=== PATIENT | male | born 1945 | race Caucasian/White ===

== ENCOUNTER 2016-04-06 09:57 | Emergency (ER) | payer OTHER ==
[~2016-04-06 09:57] MED LIST: ADVIL200 M1 PO; COLCRYS0.6 MG PO; INDOMETHACIN25 MG PO; METOPROLOL TAR100 MG PO
--- NOTE | 2016-04-06 11:31 | DIAGNOSTIC IMAGING REPORT ---
PROCEDURE: XR ANKLE 3 OR 4 VIEWS - RIGHT INDICATION: TRAUMA/INJURY TECHNIQUE: Four views. COMPARISON: None. FINDINGS: Old a avulsion fractures of the medial and lateral malleoli but no evidence of an acute fracture. Normal ankle mortise. Degenerative changes of the tibiotalar joint. Large calcaneal spurs on the plantar aspect and at the Achilles tendon insertion. Talar joint degenerative changes. Prominent soft tissue swelling medially and laterally. IMPRESSION: 1. Old bimalleolar avulsion fractures but no evidence of an acute fracture 2. Soft tissue swelling 3. Results discussed with Dr. Glez
--- NOTE | 2016-04-06 11:37 | DIAGNOSTIC IMAGING REPORT ---
PROCEDURE: XR KNEE 4 VIEWS - RIGHT INDICATION: TRAUMA/INJURY TECHNIQUE: Four views. COMPARISON: None. FINDINGS: No fracture or dislocation. Moderate lateral and patellofemoral compartment degenerative changes. Prepatellar soft tissue swelling and swelling anterior to the tibial tubercle. No effusion. IMPRESSION: 1. Prepatellar soft tissue swelling 2. Soft tissue anterior to the tibial tubercle suggestive of tendonitis versus contusion 3. Moderate degenerative changes 4. Results discussed with Dr. Glez
--- NOTE | 2016-04-06 12:07 | ED ORDER SUMMARY ---
..... Patient: ASHLIE MAXWELL OrderSheet [facility] VisitID: [id number] [place] [address] 71y, M Registration Date/Time: 04/06/2016 ORDER SHEET Weight: 108.8 kg (stated) Allergies: No Known Drug Allergy GENERAL ORDERS: Knee 4V Right Urgent (10:33 04/06/2016 Valerio Lopes) (Ack 10:45 Lachelle) (12:19 MWinterer R.N.) Ankle 3 or 4V Right Urgent (10:33 04/06/2016 Valerio Lopes) (Ack 10:45 Lachelle) (12:19 MWinterer R.N.) Orthopedic Boot (11:48 04/06/2016 Valerio Lopes) (12:06 LNations ER Tech1) MEDICATION ORDERS: IV FLUIDS: ORDER SHEET NOTES: [Electronically signed by Imer Glez Dr. (12:12 04/06/2016)] [Electronically signed by Shelly Burt R.N. (13:03 04/06/2016)] [Electronically locked/signed by Shelly Burt R.N. (13:03 04/06/2016)]
--- NOTE | 2016-04-06 12:07 | ED NURSING NOTES ---
Clinical Report - Nurses [facility] [address] [place] [address] 04/06/2016 10:00 Patient: ASHLIE MAXWELL TRIAGE Triage time 10:20. Acuity: LEVEL 3. Chief Complaint: INJURY TO RIGHT KNEE and RIGHT ANKLE. Alert. No acute distress. SEPSIS SCREEN: Sepsis Screen: negative. Negative (no infection suspected/documented). --10:29 Shelly Burt R.N. 10:20 04/06/16. BP: 171/65. HR: 98. RR: 20. O2 saturation: 98%. Temp: 97.8 F. Pain level now: 06/16. --10:29 Shelly Burt R.N. Weight: 108.8 kg stated. Height/Length: 68 inches Per Patient. BMI: 36.5. --10:27 Shelly Burt R.N. Medications Colchicine Oral 0.6 mg, daily. Indomethacin Oral 25 mg, 2x a day. Metoprolol Tartrate Oral 100 mg, BID. --10:24 Shelly Burt R.N. Medication/allergy information source: the patient. --10:29 Shelly Burt R.N. Allergies No Known Drug Allergy. --10:24 Shelly Burt R.N. History Arrived by private vehicle. Historian: patient. Accompanied by family. Primary physician (va). This occurred (2 days ago). Occurred at home. Mechanism of injury: fell while walking and landed on the ground; slipped (knee with abrasion, and and swollen. Slipped walking.). He has had trouble walking (Using a cane). The patient has been limping when trying to walk. 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 PAST MEDICAL HX: Tetanus status: unknown. SOCIAL HX: Smoker- current status unknown. Alcohol use; consumes four beers a day and liquor occasionally. No drug use. FALL RISK ASSESSMENT: Fall risk assessment completed. No fall risk identified. NUTRITIONAL RISK ASSESSMENT: The nutritional risk assessment revealed no deficiencies. FUNCTIONAL ASSESSMENT: Functional assessment: no impairments noted. LEARNING NEEDS ASSESSMENT: The learning needs assessment revealed no barriers. SKIN INTEGRITY ASSESSMENT: Skin integrity risk assessment completed. No skin integrity risk identified. --10:29 Shelly Burt R.N. PROBLEMS: Atypical Chest Pain. Hypertension. Gout. --10:25 Shelly Burt R.N. ADDITIONAL SURGERIES: Rt shoulder rotator cuff. Shoulder Surgery. --10:25 Shelly Burt R.N. Interventions ID band on patient. To room. --10:29 Shelly Burt R.N. PHYSICAL ASSESSMENT Ambulatory to room. Patient gowned. GENERAL / NEURO / PSYCH: Oriented X 4. Appears in pain and anxious. EXTREMITIES: Limited ROM present. Capillary refill is less than 2 seconds in the extremities. Pain with weight bearing. Right knee: small abrasion. SKIN: Skin is warm and dry. --10:30 Shelly Burt R.N. NURSING PROGRESS NOTES Cold pack applied. Extremity elevated. Patient gowned. Two patient identifiers checked. Call light placed in reach. Side rails up x 2. Bed placed in lowest position. Brakes of bed on. Patient ready for evaluation. --10:31 Shelly Burt R.N. 11:42 04/06/16. BP: 160/71. HR: 65. RR: 20. O2 saturation: 98%. Temp: deferred. Pain level now: 04/16. --11:44 Shelly Burt R.N. ( Walking boot to the rt foot.). --11:49 Shelly Burt R.N. DISPOSITION / DISCHARGE Condition at departure: improved. No learning barriers present. Discharge instructions provided and reviewed with the patient. Reviewed medication(s) side effects, precautions, dosing and course information. Prescription(s) given to the patient. Patient verbalized understanding. Written instructions provided in Hong [place]er. The patient was discharged home and accompanied by spouse. He left the Emergency Department ambulatory and via private vehicle. Spouse driving. Medication list reviewed and validated. --13:02 Shelly Burt R.N. 11:42 04/06/16. BP: 160/71. HR: 65. RR: 20. O2 saturation: 98%. Temp: deferred. Pain level now: 04/16. 10:20 04/06/16. BP: 171/65. HR: 98. RR: 20. O2 saturation: 98%. Temp: 97.8 F. Pain level now: 06/16. --13:02 Shelly Burt R.N. Locked/Released at 04/06/2016 13:03 by Shelly Burt R.N.
--- NOTE | 2016-04-06 12:07 | ED ORDER SUMMARY ---
..... Patient: ASHLIE MAXWELL OrderSheet [facility] VisitID: [id number] [place] [address] 71y, M Registration Date/Time: 04/06/2016 ORDER SHEET Weight: 108.8 kg (stated) Allergies: No Known Drug Allergy GENERAL ORDERS: Knee 4V Right Urgent (10:33 04/06/2016 Valerio Lopes) (Ack 10:45 Lachelle) (12:19 MWinterer R.N.) Ankle 3 or 4V Right Urgent (10:33 04/06/2016 Valerio Lopes) (Ack 10:45 Lachelle) (12:19 MWinterer R.N.) Orthopedic Boot (11:48 04/06/2016 Valerio Lopes) (12:06 LNations ER Tech1) MEDICATION ORDERS: IV FLUIDS: ORDER SHEET NOTES: [Electronically signed by Imer Glez Dr. (12:12 04/06/2016)] [Electronically signed by Shelly Burt R.N. (13:03 04/06/2016)] [Electronically locked/signed by Shelly Burt R.N. (13:03 04/06/2016)]
--- NOTE | 2016-04-06 12:07 | ED NURSING NOTES ---
Clinical Report - Nurses [facility] [address] [place] [address] 04/06/2016 10:00 Patient: ASHLIE MAXWELL TRIAGE Triage time 10:20. Acuity: LEVEL 3. Chief Complaint: INJURY TO RIGHT KNEE and RIGHT ANKLE. Alert. No acute distress. SEPSIS SCREEN: Sepsis Screen: negative. Negative (no infection suspected/documented). --10:29 Shelly Burt R.N. 10:20 04/06/16. BP: 171/65. HR: 98. RR: 20. O2 saturation: 98%. Temp: 97.8 F. Pain level now: 06/16. --10:29 Shelly Burt R.N. Weight: 108.8 kg stated. Height/Length: 68 inches Per Patient. BMI: 36.5. --10:27 Shelly Burt R.N. Medications Colchicine Oral 0.6 mg, daily. Indomethacin Oral 25 mg, 2x a day. Metoprolol Tartrate Oral 100 mg, BID. --10:24 Shelly Burt R.N. Medication/allergy information source: the patient. --10:29 Shelly Burt R.N. Allergies No Known Drug Allergy. --10:24 Shelly Burt R.N. History Arrived by private vehicle. Historian: patient. Accompanied by family. Primary physician (va). This occurred (2 days ago). Occurred at home. Mechanism of injury: fell while walking and landed on the ground; slipped (knee with abrasion, and and swollen. Slipped walking.). He has had trouble walking (Using a cane). The patient has been limping when trying to walk. 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 PAST MEDICAL HX: Tetanus status: unknown. SOCIAL HX: Smoker- current status unknown. Alcohol use; consumes four beers a day and liquor occasionally. No drug use. FALL RISK ASSESSMENT: Fall risk assessment completed. No fall risk identified. NUTRITIONAL RISK ASSESSMENT: The nutritional risk assessment revealed no deficiencies. FUNCTIONAL ASSESSMENT: Functional assessment: no impairments noted. LEARNING NEEDS ASSESSMENT: The learning needs assessment revealed no barriers. SKIN INTEGRITY ASSESSMENT: Skin integrity risk assessment completed. No skin integrity risk identified. --10:29 Shelly Burt R.N. PROBLEMS: Atypical Chest Pain. Hypertension. Gout. --10:25 Shelly Burt R.N. ADDITIONAL SURGERIES: Rt shoulder rotator cuff. Shoulder Surgery. --10:25 Shelly Burt R.N. Interventions ID band on patient. To room. --10:29 Shelly Burt R.N. PHYSICAL ASSESSMENT Ambulatory to room. Patient gowned. GENERAL / NEURO / PSYCH: Oriented X 4. Appears in pain and anxious. EXTREMITIES: Limited ROM present. Capillary refill is less than 2 seconds in the extremities. Pain with weight bearing. Right knee: small abrasion. SKIN: Skin is warm and dry. --10:30 Shelly Burt R.N. NURSING PROGRESS NOTES Cold pack applied. Extremity elevated. Patient gowned. Two patient identifiers checked. Call light placed in reach. Side rails up x 2. Bed placed in lowest position. Brakes of bed on. Patient ready for evaluation. --10:31 Shelly Burt R.N. 11:42 04/06/16. BP: 160/71. HR: 65. RR: 20. O2 saturation: 98%. Temp: deferred. Pain level now: 04/16. --11:44 Shelly Burt R.N. ( Walking boot to the rt foot.). --11:49 Shelly Burt R.N. DISPOSITION / DISCHARGE Condition at departure: improved. No learning barriers present. Discharge instructions provided and reviewed with the patient. Reviewed medication(s) side effects, precautions, dosing and course information. Prescription(s) given to the patient. Patient verbalized understanding. Written instructions provided in Senegalese. The patient was discharged home and accompanied by spouse. He left the Emergency Department ambulatory and via private vehicle. Spouse driving. Medication list reviewed and validated. --13:02 Shelly Burt R.N. 11:42 04/06/16. BP: 160/71. HR: 65. RR: 20. O2 saturation: 98%. Temp: deferred. Pain level now: 04/16. 10:20 04/06/16. BP: 171/65. HR: 98. RR: 20. O2 saturation: 98%. Temp: 97.8 F. Pain level now: 06/16. --13:02 Shelly Burt R.N. Locked/Released at 04/06/2016 13:03 by Shelly Burt R.N.
--- NOTE | 2016-04-06 12:07 | ED CLINICAL REPORT ---
Clinical Report - Physicians/Mid Levels [facility] [address] [place] [address] 04/06/2016 10:00 Patient: ASHLIE MAXWELL Time Seen: 10:22; initial patient contact. Arrived- By private vehicle. Historian- patient. HISTORY OF PRESENT ILLNESS Chief Complaint: FALL. The injury occurred about 2 days ago. Occurred at home. Fell while walking and landed on the ground; tripped. The patient complains of moderate pain. No blow to the head, neck pain or loss of consciousness. Not dazed. REVIEW OF SYSTEMS The patient complains of pain on weight bearing. No numbness, dizziness, loss of vision, hearing loss or chest pain. No difficulty breathing, weakness, headache or laceration. He has had moderate joint pain, involving the right knee and right ankle. All systems otherwise negative, except as recorded above. PAST HISTORY Atypical Chest Pain. Hypertension. Gout. ADDITIONAL SURGERIES: Rt shoulder rotator cuff. Shoulder Surgery. SOCIAL HISTORY Smoker - current status unknown. Regular alcohol use. ADDITIONAL NOTES The nursing notes have been reviewed with agreement regarding the chief complaint, PMH and patient medications and allergies. PHYSICAL EXAM Appearance: Alert. Oriented X3. No acute distress. Head: Head non-tender. No swelling of head. CVS: Heart sounds normal. Rate normal. Rhythm normal. Respiratory: No respiratory distress. Breath sounds normal. Skin: The patient has a single small abrasion on the right knee. Extremities: Right knee: small abrasion and ecchymosis located in the infrapatellar area. Limited ROM secondary to pain (diminished flexion). Neurovascular intact distally. No joint effusion. Right ankle: moderate tenderness and swelling. Limited ROM secondary to pain and swelling (diminished plantar flexion, dorsiflexion, inversion and eversion). Neurovascular intact distally. No erythema or ecchymosis. Neuro: Oriented X 3. No motor deficit. LABS, X-RAYS, AND EKG Rt Knee X-ray: (1. Prepatellar soft tissue swelling 2. Soft tissue anterior to the tibial tubercle suggestive of tendonitis versus contusion 3. Moderate degenerative changes). Views: AP and lateral. Technique: good. The X-rays were independently viewed by me, interpreted by the radiologist and contemporaneously by me and discussed with the radiologist. Prior films were not available for comparison. Rt Ankle X-ray: (1. Old bimalleolar avulsion fractures but no evidence of an acute fracture 2. Soft tissue swelling). Views: 3 view ankle series. Technique: good. The X-rays were independently viewed by me, interpreted by the radiologist and contemporaneously by me and discussed with the radiologist. Prior films were not available for comparison. PROGRESS AND PROCEDURES Disposition: Discharged home in good condition. Condition: good. CLINICAL IMPRESSION Sprain of the right ankle. Single contusion to the right knee. INSTRUCTIONS Apply ice for 20 minutes four times a day. Don't apply ice directly to skin. Your Current Medications: CONTINUE TAKING THE FOLLOWING MEDICATIONS: Colchicine Oral : 0.6 mg daily. Indomethacin Oral : 25 mg 2x a day. Metoprolol Tartrate Oral : 100 mg BID. Prescription Medications: Hydrocodone/APAP 5mg / 325mg: take 1 orally every 6 hours as needed for pain. Dispense fifteen (15). No refill. Follow-up: Blood pressure screening was not performed during this visit because the patient has an active diagnosis of hypertension. Follow-up with: [facility], , [address] [place], [address] Follow up in about two days. Call for an appointment. (Electronically signed by Imer Glez Dr. 04/06/2016 12:12)
--- NOTE | 2016-04-06 12:07 | ED CLINICAL REPORT ---
Clinical Report - Physicians/Mid Levels [facility] [address] [place] [place] [address] 04/06/2016 10:00 Patient: ASHLIE MAXWELL Time Seen: 10:22; initial patient contact. Arrived- By private vehicle. Historian- patient. HISTORY OF PRESENT ILLNESS Chief Complaint: FALL. The injury occurred about 2 days ago. Occurred at home. Fell while walking and landed on the ground; tripped. The patient complains of moderate pain. No blow to the head, neck pain or loss of consciousness. Not dazed. REVIEW OF SYSTEMS The patient complains of pain on weight bearing. No numbness, dizziness, loss of vision, hearing loss or chest pain. No difficulty breathing, weakness, headache or laceration. He has had moderate joint pain, involving the right knee and right ankle. All systems otherwise negative, except as recorded above. PAST HISTORY Atypical Chest Pain. Hypertension. Gout. ADDITIONAL SURGERIES: Rt shoulder rotator cuff. Shoulder Surgery. SOCIAL HISTORY Smoker - current status unknown. Regular alcohol use. ADDITIONAL NOTES The nursing notes have been reviewed with agreement regarding the chief complaint, PMH and patient medications and allergies. PHYSICAL EXAM Appearance: Alert. Oriented X3. No acute distress. Head: Head non-tender. No swelling of head. CVS: Heart sounds normal. Rate normal. Rhythm normal. Respiratory: No respiratory distress. Breath sounds normal. Skin: The patient has a single small abrasion on the right knee. Extremities: Right knee: small abrasion and ecchymosis located in the infrapatellar area. Limited ROM secondary to pain (diminished flexion). Neurovascular intact distally. No joint effusion. Right ankle: moderate tenderness and swelling. Limited ROM secondary to pain and swelling (diminished plantar flexion, dorsiflexion, inversion and eversion). Neurovascular intact distally. No erythema or ecchymosis. Neuro: Oriented X 3. No motor deficit. LABS, X-RAYS, AND EKG Rt Knee X-ray: (1. Prepatellar soft tissue swelling 2. Soft tissue anterior to the tibial tubercle suggestive of tendonitis versus contusion 3. Moderate degenerative changes). Views: AP and lateral. Technique: good. The X-rays were independently viewed by me, interpreted by the radiologist and contemporaneously by me and discussed with the radiologist. Prior films were not available for comparison. Rt Ankle X-ray: (1. Old bimalleolar avulsion fractures but no evidence of an acute fracture 2. Soft tissue swelling). Views: 3 view ankle series. Technique: good. The X-rays were independently viewed by me, interpreted by the radiologist and contemporaneously by me and discussed with the radiologist. Prior films were not available for comparison. PROGRESS AND PROCEDURES Disposition: Discharged home in good condition. Condition: good. CLINICAL IMPRESSION Sprain of the right ankle. Single contusion to the right knee. INSTRUCTIONS Apply ice for 20 minutes four times a day. Don't apply ice directly to skin. Your Current Medications: CONTINUE TAKING THE FOLLOWING MEDICATIONS: Colchicine Oral : 0.6 mg daily. Indomethacin Oral : 25 mg 2x a day. Metoprolol Tartrate Oral : 100 mg BID. Prescription Medications: Hydrocodone/APAP 5mg / 325mg: take 1 orally every 6 hours as needed for pain. Dispense fifteen (15). No refill. Follow-up: Blood pressure screening was not performed during this visit because the patient has an active diagnosis of hypertension. Follow-up with: [facility], , [address] [place], [address] Follow up in about two days. Call for an appointment. (Electronically signed by Imer Glez Dr. 04/06/2016 12:12)
--- NOTE | 2016-04-06 13:03 | ED MED RECONCILIATION SUMMARY ---
Patient: ASHLIE MAXWELL Medication Reconciliation Report [facility] VisitID: [id number] [address] [place] [address] 71y, M Registration Date/Time: 04/06/2016 Weight: 108.8 kg Height/Length: 68 in. BMI: 36.5 ALLERGIES: No Known Drug Allergy The patient's Home Medications are listed below: CONTINUE TAKING THE FOLLOWING MEDICATIONS: Colchicine Oral 0.6 mg, daily Indomethacin Oral 25 mg, 2x a day Metoprolol Tartrate Oral 100 mg, BID The source(s) of the original Home Medication information: patient The following Medications were given to the patient in the Emergency Department: None. The following Medications were prescribed to the patient: Hydrocodone/APAP 5mg / 325mg: take 1 orally every 6 hours as needed for pain. Dispense fifteen (15). No refill. -- Imer Glez Dr.
--- NOTE | 2016-04-06 13:03 | ED MED RECONCILIATION SUMMARY ---
Patient: ASHLIE MAXWELL Medication Reconciliation Report [facility] VisitID: [id number] [address] [place] [address] 71y, M Registration Date/Time: 04/06/2016 Weight: 108.8 kg Height/Length: 68 in. BMI: 36.5 ALLERGIES: No Known Drug Allergy The patient's Home Medications are listed below: CONTINUE TAKING THE FOLLOWING MEDICATIONS: Colchicine Oral 0.6 mg, daily Indomethacin Oral 25 mg, 2x a day Metoprolol Tartrate Oral 100 mg, BID The source(s) of the original Home Medication information: patient The following Medications were given to the patient in the Emergency Department: None. The following Medications were prescribed to the patient: Hydrocodone/APAP 5mg / 325mg: take 1 orally every 6 hours as needed for pain. Dispense fifteen (15). No refill. -- Imer Glez Dr.
--- NOTE | 2016-04-06 13:03 | ED MAR SUMMARY ---
..... Medication Administration Record [facility] [address] [place] [id number] Patient: ASHLIE MAXWELL Visit ID: [id number] 71y, M Weight: 108.8 kg Height/Length: 68 in BMI: 36.5 ALLERGIES: No Known Drug Allergy
--- NOTE | 2016-04-06 13:03 | ED MAR SUMMARY ---
..... Medication Administration Record [facility] [address] [place], [place] [id number] Patient: ASHLIE MAXWELL Visit ID: [id number] 71y, M Weight: 108.8 kg Height/Length: 68 in BMI: 36.5 ALLERGIES: No Known Drug Allergy
--- NOTE | 2016-04-06 13:03 | ED DISCHARGE INSTRUCTIONS ---
Patient: ASHLIE MAXWELL General Instructions [facility] VisitID: [id number] [address], [place], [place] [id number] 71y, M Registration Date/Time: 04/06/2016 Sprain of the right ankle. Single contusion to the right knee. INSTRUCTIONS Apply ice for 20 minutes four times a day. Don't apply ice directly to skin. Your Current Medications: CONTINUE TAKING THE FOLLOWING MEDICATIONS: Colchicine Oral : 0.6 mg daily. Indomethacin Oral : 25 mg 2x a day. Metoprolol Tartrate Oral : 100 mg BID. Prescription Medications: Hydrocodone/APAP 5mg / 325mg: take 1 orally every 6 hours as needed for pain. Dispense fifteen (15). No refill. Follow-up: Blood pressure screening was not performed during this visit because the patient has an active diagnosis of hypertension. Follow-up with: [facility], , [address], , [place], [id number] Follow up in about two days. Call for an appointment. ADDITIONAL INFORMATION Sprain, Ankle,With X-Ray A sprain is an injury to the ligaments or capsule that holds a joint together. There are no broken bones. Most sprains take from four to six weeks to heal. If the ligament is completely torn (severe sprain), it can take several months to recover. Mild to moderate sprains may be treated with an elastic wrap or an in-shoe splint to provide support and prevent re-injury. A mild sprain may not require any additional support. A severe sprain may require surgery to repair. Home care The following guidelines will help you care for your injury at home: Stay off the injured leg as much as possible until you can walk on it without pain. If you have a lot of pain with walking, crutches or a walker may be prescribed. (These can be rented or purchased at many pharmacies and surgical or orthopedic supply stores). Follow your doctor's advice regarding when to begin bearing weight on that leg. Keep your leg elevated to reduce pain and swelling. When sleeping, place a pillow under the injured leg. When sitting, support the injured leg so it is level with your waist. This is very important during the first 48 hours. Apply an ice pack (ice cubes in a plastic bag, wrapped in a towel) over the injured area for 20 minutes every 12 hours the first day. You can place the ice pack directly over the splint/cast. If you were given a boot, open it to apply the ice pack. Continue with ice packs 34 times a day for the next two days, then as needed for the relief of pain and swelling. You may use acetaminophen or ibuprofen to control pain, unless another pain medicine was prescribed. If you have chronic liver or kidney disease or ever had a stomach ulcer or GI bleeding, talk with your doctor before using these medicines. You may return to sports after healing, when you can run without pain. A sprained ankle is at risk for re-injury during the first six weeks. During that time, protect your ankle with an in-shoe splint that prevents tilting of your ankle from side to side. This is very important if you do active work or play sports during that time. Follow-up care Any X-rays you had today dont show any broken bones, breaks, or fractures. Sometimes fractures dont show up on the first X-ray. Bruises and sprains can sometimes hurt as much as a fracture. These injuries can take time to heal completely. If your symptoms dont improve or they get worse, talk with your doctor. You may need a repeat X-ray. When to seek medical care Get prompt medical attention if any of the following occur: The plaster cast or splint gets wet or soft The fiberglass cast or splint gets wet and does not dry for 24 hours Pain or swelling increases, or redness appears Toes become cold, blue, numb or tingly Re-injure your ankle Contusion,Soft Tissue You have a CONTUSION, which is a bruise with swelling and some bleeding under the skin. There are no broken bones. This injury takes a few days to a few weeks to heal. Home Care: 1) Keep the injured part elevated to reduce pain and swelling. This is especially important during the first 48 hours. 2) Make an ice pack (ice cubes in a plastic bag, wrapped in a towel) and apply for 20 minutes every 1-2 hours the first day. Continue this 3-4 times a day until the pain and swelling goes away. 3) You may use acetaminophen (Tylenol) or ibuprofen (Motrin, Advil) to control pain, unless another pain medicine was prescribed. [ NOTE : If you have chronic liver or kidney disease or ever had a stomach ulcer or GI bleeding, talk with your doctor before using these medicines.] Follow Up with your doctor or this facility if you are not improving within the next THREE days. [NOTE: If X-rays were taken, they will be reviewed by a radiologist. You will be notified of any new findings that may affect your care.] Get Prompt Medical Attention if any of the following occur: -- Pain or swelling increases -- Injured arm or leg becomes cold, blue, numb or tingly -- Redness, warmth or drainage from the skin Hydrocodone Bitartrate, Acetaminophen Oral tablet What is this medicine? ACETAMINOPHEN; HYDROCODONE (a set a PATIENCE lucina fen; jessica droe KOE done) is a pain reliever. It is used to treat mild to moderate pain. How should I use this medicine? Take this medicine by mouth. Swallow it with a full glass of water. Follow the directions on the prescription label. If the medicine upsets your stomach, take the medicine with food or milk. Do not take more than you are told to take. Talk to your associate professor of church music regarding the use of this medicine in children. This medicine is not approved for use in children. What side effects may I notice from receiving this medicine? Side effects that you should report to your doctor or health primary care nurse as soon as possible: allergic reactions like skin rash, itching or hives, swelling of the face, lips, or tongue breathing problems confusion feeling faint or lightheaded, falls stomach pain yellowing of the eyes or skin Side effects that usually do not require medical attention (report to your doctor or health primary care nurse if they continue or are bothersome): nausea, vomiting stomach upset What may interact with this medicine? alcohol antihistamines isoniazid medicines for depression, anxiety, or psychotic disturbances medicines for sleep muscle relaxants naltrexone narcotic medicines (opiates) for pain phenobarbital ritonavir tramadol What if I miss a dose? If you miss a dose, take it as soon as you can. If it is almost time for your next dose, take only that dose. Do not take double or extra doses. Where should I keep my medicine? Keep out of the reach of children. This medicine can be abused. Keep your medicine in a safe place to protect it from theft. Do not share this medicine with anyone. Selling or giving away this medicine is dangerous and against the law. Store at room temperature between 15 and 30 degrees C (59 and 86 degrees F). Protect from light. Keep container tightly closed. Throw away any unused medicine after the expiration date. Discard unused medicine and used packaging carefully. Pets and children can be harmed if they find used or lost packages. What should I tell my health care provider before I take this medicine? They need to know if you have any of these conditions: brain tumor Crohn's disease, inflammatory bowel disease, or ulcerative colitis drink more than 3 alcohol-containing drinks per day drug abuse or addiction head injury heart or circulation problems kidney disease or problems going to the bathroom liver disease lung disease, asthma, or breathing problems an unusual or allergic reaction to acetaminophen, hydrocodone, other opioid analgesics, other medicines, foods, dyes, or preservatives or trying to get breast-feeding What should I watch for while using this medicine? Tell your doctor or health primary care nurse if your pain does not go away, if it gets worse, or if you have new or a different type of pain. You may develop tolerance to the medicine. Tolerance means that you will need a higher dose of the medicine for pain relief. Tolerance is normal and is expected if you take the medicine for a long time. Do not suddenly stop taking your medicine because you may develop a severe reaction. Your body becomes used to the medicine. This does NOT mean you are addicted. Addiction is a behavior related to getting and using a drug for a non-medical reason. If you have pain, you have a medical reason to take pain medicine. Your doctor will tell you how much medicine to take. If your doctor wants you to stop the medicine, the dose will be slowly lowered over time to avoid any side effects. You may get drowsy or dizzy when you first start taking the medicine or change doses. Do not drive, use machinery, or do anything that may be dangerous until you know how the medicine affects you. Stand or sit up slowly. There are different types of narcotic medicines (opiates) for pain. If you take more than one type at the same time, you may have more side effects. Give your health care provider a list of all medicines you use. Your doctor will tell you how much medicine to take. Do not take more medicine than directed. Call emergency for help if you have problems breathing. The medicine will cause constipation. Try to have a bowel movement at least every 2 to 3 days. If you do not have a bowel movement for 3 days, call your doctor or health primary care nurse. Too much acetaminophen can be very dangerous. Do not take Tylenol (acetaminophen) or medicines that contain acetaminophen with this medicine. Many non-prescription medicines contain acetaminophen. Always read the labels carefully. You have been given the following additional information: Sprain, Ankle, With X-Ray Contusion, Soft Tissue Hydrocodone Bitartrate, Acetaminophen Oral tablet (Electronically signed by Imer Glez Dr. 04/06/2016 12:12)
--- NOTE | 2016-04-06 13:03 | ED DISCHARGE INSTRUCTIONS ---
Patient: ASHLIE MAXWELL General Instructions [facility] VisitID: [id number] [address], [place], [place] [id number] 71y, M Registration Date/Time: 04/06/2016 Sprain of the right ankle. Single contusion to the right knee. INSTRUCTIONS Apply ice for 20 minutes four times a day. Don't apply ice directly to skin. Your Current Medications: CONTINUE TAKING THE FOLLOWING MEDICATIONS: Colchicine Oral : 0.6 mg daily. Indomethacin Oral : 25 mg 2x a day. Metoprolol Tartrate Oral : 100 mg BID. Prescription Medications: Hydrocodone/APAP 5mg / 325mg: take 1 orally every 6 hours as needed for pain. Dispense fifteen (15). No refill. Follow-up: Blood pressure screening was not performed during this visit because the patient has an active diagnosis of hypertension. Follow-up with: [facility], , [address], , [place], [id number] Follow up in about two days. Call for an appointment. ADDITIONAL INFORMATION Sprain, Ankle,With X-Ray A sprain is an injury to the ligaments or capsule that holds a joint together. There are no broken bones. Most sprains take from four to six weeks to heal. If the ligament is completely torn (severe sprain), it can take several months to recover. Mild to moderate sprains may be treated with an elastic wrap or an in-shoe splint to provide support and prevent re-injury. A mild sprain may not require any additional support. A severe sprain may require surgery to repair. Home care The following guidelines will help you care for your injury at home: Stay off the injured leg as much as possible until you can walk on it without pain. If you have a lot of pain with walking, crutches or a walker may be prescribed. (These can be rented or purchased at many pharmacies and surgical or orthopedic supply stores). Follow your doctor's advice regarding when to begin bearing weight on that leg. Keep your leg elevated to reduce pain and swelling. When sleeping, place a pillow under the injured leg. When sitting, support the injured leg so it is level with your waist. This is very important during the first 48 hours. Apply an ice pack (ice cubes in a plastic bag, wrapped in a towel) over the injured area for 20 minutes every 12 hours the first day. You can place the ice pack directly over the splint/cast. If you were given a boot, open it to apply the ice pack. Continue with ice packs 34 times a day for the next two days, then as needed for the relief of pain and swelling. You may use acetaminophen or ibuprofen to control pain, unless another pain medicine was prescribed. If you have chronic liver or kidney disease or ever had a stomach ulcer or GI bleeding, talk with your doctor before using these medicines. You may return to sports after healing, when you can run without pain. A sprained ankle is at risk for re-injury during the first six weeks. During that time, protect your ankle with an in-shoe splint that prevents tilting of your ankle from side to side. This is very important if you do active work or play sports during that time. Follow-up care Any X-rays you had today dont show any broken bones, breaks, or fractures. Sometimes fractures dont show up on the first X-ray. Bruises and sprains can sometimes hurt as much as a fracture. These injuries can take time to heal completely. If your symptoms dont improve or they get worse, talk with your doctor. You may need a repeat X-ray. When to seek medical care Get prompt medical attention if any of the following occur: The plaster cast or splint gets wet or soft The fiberglass cast or splint gets wet and does not dry for 24 hours Pain or swelling increases, or redness appears Toes become cold, blue, numb or tingly Re-injure your ankle Contusion,Soft Tissue You have a CONTUSION, which is a bruise with swelling and some bleeding under the skin. There are no broken bones. This injury takes a few days to a few weeks to heal. Home Care: 1) Keep the injured part elevated to reduce pain and swelling. This is especially important during the first 48 hours. 2) Make an ice pack (ice cubes in a plastic bag, wrapped in a towel) and apply for 20 minutes every 1-2 hours the first day. Continue this 3-4 times a day until the pain and swelling goes away. 3) You may use acetaminophen (Tylenol) or ibuprofen (Motrin, Advil) to control pain, unless another pain medicine was prescribed. [ NOTE : If you have chronic liver or kidney disease or ever had a stomach ulcer or GI bleeding, talk with your doctor before using these medicines.] Follow Up with your doctor or this facility if you are not improving within the next THREE days. [NOTE: If X-rays were taken, they will be reviewed by a radiologist. You will be notified of any new findings that may affect your care.] Get Prompt Medical Attention if any of the following occur: -- Pain or swelling increases -- Injured arm or leg becomes cold, blue, numb or tingly -- Redness, warmth or drainage from the skin Hydrocodone Bitartrate, Acetaminophen Oral tablet What is this medicine? ACETAMINOPHEN; HYDROCODONE (a set a PATIENCE lucina fen; jessica droe KOE done) is a pain reliever. It is used to treat mild to moderate pain. How should I use this medicine? Take this medicine by mouth. Swallow it with a full glass of water. Follow the directions on the prescription label. If the medicine upsets your stomach, take the medicine with food or milk. Do not take more than you are told to take. Talk to your human factors scientist regarding the use of this medicine in children. This medicine is not approved for use in children. What side effects may I notice from receiving this medicine? Side effects that you should report to your doctor or health career center director as soon as possible: allergic reactions like skin rash, itching or hives, swelling of the face, lips, or tongue breathing problems confusion feeling faint or lightheaded, falls stomach pain yellowing of the eyes or skin Side effects that usually do not require medical attention (report to your doctor or health career center director if they continue or are bothersome): nausea, vomiting stomach upset What may interact with this medicine? alcohol antihistamines isoniazid medicines for depression, anxiety, or psychotic disturbances medicines for sleep muscle relaxants naltrexone narcotic medicines (opiates) for pain phenobarbital ritonavir tramadol What if I miss a dose? If you miss a dose, take it as soon as you can. If it is almost time for your next dose, take only that dose. Do not take double or extra doses. Where should I keep my medicine? Keep out of the reach of children. This medicine can be abused. Keep your medicine in a safe place to protect it from theft. Do not share this medicine with anyone. Selling or giving away this medicine is dangerous and against the law. Store at room temperature between 15 and 30 degrees C (59 and 86 degrees F). Protect from light. Keep container tightly closed. Throw away any unused medicine after the expiration date. Discard unused medicine and used packaging carefully. Pets and children can be harmed if they find used or lost packages. What should I tell my health care provider before I take this medicine? They need to know if you have any of these conditions: brain tumor Crohn's disease, inflammatory bowel disease, or ulcerative colitis drink more than 3 alcohol-containing drinks per day drug abuse or addiction head injury heart or circulation problems kidney disease or problems going to the bathroom liver disease lung disease, asthma, or breathing problems an unusual or allergic reaction to acetaminophen, hydrocodone, other opioid analgesics, other medicines, foods, dyes, or preservatives or trying to get breast-feeding What should I watch for while using this medicine? Tell your doctor or health career center director if your pain does not go away, if it gets worse, or if you have new or a different type of pain. You may develop tolerance to the medicine. Tolerance means that you will need a higher dose of the medicine for pain relief. Tolerance is normal and is expected if you take the medicine for a long time. Do not suddenly stop taking your medicine because you may develop a severe reaction. Your body becomes used to the medicine. This does NOT mean you are addicted. Addiction is a behavior related to getting and using a drug for a non-medical reason. If you have pain, you have a medical reason to take pain medicine. Your doctor will tell you how much medicine to take. If your doctor wants you to stop the medicine, the dose will be slowly lowered over time to avoid any side effects. You may get drowsy or dizzy when you first start taking the medicine or change doses. Do not drive, use machinery, or do anything that may be dangerous until you know how the medicine affects you. Stand or sit up slowly. There are different types of narcotic medicines (opiates) for pain. If you take more than one type at the same time, you may have more side effects. Give your health care provider a list of all medicines you use. Your doctor will tell you how much medicine to take. Do not take more medicine than directed. Call emergency for help if you have problems breathing. The medicine will cause constipation. Try to have a bowel movement at least every 2 to 3 days. If you do not have a bowel movement for 3 days, call your doctor or health career center director. Too much acetaminophen can be very dangerous. Do not take Tylenol (acetaminophen) or medicines that contain acetaminophen with this medicine. Many non-prescription medicines contain acetaminophen. Always read the labels carefully. You have been given the following additional information: Sprain, Ankle, With X-Ray Contusion, Soft Tissue Hydrocodone Bitartrate, Acetaminophen Oral tablet (Electronically signed by Imer Glez Dr. 04/06/2016 12:12)
== END 2016-04-06 12:15 | disposition home or self-care (01) ==
LOC: ED SRH 09:57
DX: S93.401A Sprain of unspecified ligament of right ankle, initial encounter (principal); S80.01XA Contusion of right knee, initial encounter; W01.0XXA Fall on same level from slipping, tripping and stumbling without subsequent striking against object, initial encounter; Y93.01 Activity, walking, marching and hiking; Y92.009 Unspecified place in unspecified non-institutional (private) residence as the place of occurrence of the external cause; Y99.9 Unspecified external cause status; I10 Essential (primary) hypertension; Z79.899 Other long term (current) drug therapy

== ENCOUNTER 2016-06-27 19:19 | Emergency (ER) | payer OTHER ==
--- NOTE | 2016-06-27 21:58 | ED CLINICAL REPORT ---
Clinical Report - [facility] [address] [place] [place] [address] 06/27/2016 19:21 Patient: ASHLIE MAXWELL Time Seen: 20:04; initial patient contact. Arrived- By private vehicle. Historian- patient. HISTORY OF PRESENT ILLNESS Chief Complaint: BACK PAIN. Modifying factors. Not worsened by anything. Not relieved by anything. It is described as being moderate in degree and in the area of the lower lumbar spine. The quality is noted to be aching. No radiation. Onset- about 3 days ago and it is still present. It was gradual in onset and has been constant. No bladder dysfunction, bowel dysfunction, sensory loss or motor loss. Patient denies an injury. Patient also notes injury to the neck. Patient denies injury to the head. Similar symptoms previously: None. Recent medical care: Not recently seen/assessed. REVIEW OF SYSTEMS No fever, chills or headache. He has had neck pain. All systems otherwise negative, except as recorded above. PAST HISTORY Contusion. Sprain. Atypical Chest Pain. Hypertension. Gout. SURGERIES: Rt shoulder rotator cuff. Shoulder Surgery. Medications: Colchicine Oral 0.6 mg, daily. Indomethacin Oral 25 mg, 2x a day. Metoprolol Tartrate Oral 100 mg, BID. Allergies: No Known Drug Allergy. SOCIAL HISTORY Former smoker. Regular alcohol use. No drug use. ADDITIONAL NOTES The nursing notes have been reviewed. PHYSICAL EXAM Vital Signs: 06/27/2016 19:41 BP: 199/89. HR: 80. RR: 20. O2 saturation: 95%. Temp: 98.9 F. Pain level now: 11/16. Have been reviewed. Hypertensive. Heart rate normal. Respiratory rate normal. Temperature normal. Oxygen saturation normal. Appearance: Alert. Appears to be in pain. Neck: Moderate muscle spasm of the left posterior neck. Moderate acute decrease in ROM secondary to pain. No vertebral tenderness. Back: Moderate muscle spasm of the right and left posterior back. Moderate soft tissue tenderness in the right mid and lower and left mid and lower lumbar area. Moderately limited ROM in the back- in the lumbar spine: decreased flexion, extension and rotation to the right and left. No vertebral point tenderness. Neuro: Oriented X 3. Mood/affect normal. No motor deficit. No sensory deficit. PROGRESS AND PROCEDURES Disposition: Discharged home in good and improved condition. Condition: good. CLINICAL IMPRESSION Acute lumbar strain. Acute cervical strain. INSTRUCTIONS No lifting greater than 10 lbs until well. Your Current Medications: CONTINUE TAKING THE FOLLOWING MEDICATIONS: Colchicine Oral : 0.6 mg daily. Indomethacin Oral : 25 mg 2x a day. Metoprolol Tartrate Oral : 100 mg BID. Prescription Medications: Baclofen 20 mg: take 1 orally every 8 hours. Dispense thirty (30). No refills. Colchicine 0.6 mg tablets: take 1 tablet orally every 1-2 hours as needed for pain. Do not take more than 4 mg in one day. Dispense thirty (30). No refills. Follow-up: Follow up with your doctor in about two days. Call for an appointment. Blood pressure screening was not performed during this visit because the patient has an active diagnosis of hypertension. (Electronically signed by Imer Glez Dr. 06/27/2016 22:00)
--- NOTE | 2016-06-27 21:58 | ED NURSING NOTES ---
Clinical Report - Nurses [facility] [address] [place] [address] 06/27/2016 19:21 Patient: ASHLIE MAXWELL TRIAGE Triage time 19:28. Acuity: LEVEL 3. Chief Complaint: (numbness in back, pain in neck). 19:48 06/27/16. Alert. No acute distress. SEPSIS SCREEN: Sepsis Screen. Negative (no infection suspected/documented). CHARMAINE COMA SCORE: Mark Coma Scale: 15- eyes open spontaneously (4); best verbal response- oriented x 4 (5); best motor response- obeys commands (6). --19:48 Monica Smith R.N. 19:41 06/27/16. BP: 199/89. HR: 80. RR: 20. O2 saturation: 95%. Temp: 98.9 F. Pain level now: 11/16. --19:48 Monica Smith R.N. 19:51 06/27/16. --19:51 Monica Smith R.N. Weight: 104.3 kg stated. Height/Length: 69 inches Per Patient. BMI: 34. --19:47 Monica Smith R.N. Medications Colchicine Oral 0.6 mg, daily. Indomethacin Oral 25 mg, 2x a day. Metoprolol Tartrate Oral 100 mg, BID. --19:43 Monica Smith R.N. Allergies No Known Drug Allergy. --19:43 Monica Smith R.N. History Arrived by private vehicle. Historian: patient and family. Accompanied by family. Primary physician (Dr Soni at the [facility]). Onset. (3 days ago). He has had weakness and a cough. 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 PAST MEDICAL HX: Immunizations: up-to-date. SOCIAL HX: Former smoker, end date 1976. Heavy alcohol use. (Patient states "I drink at least 3 beers a day"). No drug use. FALL RISK ASSESSMENT: Fall risk assessment completed. No fall risk identified. NUTRITIONAL RISK ASSESSMENT: The nutritional risk assessment revealed no deficiencies. FUNCTIONAL ASSESSMENT: Functional assessment: no impairments noted. LEARNING NEEDS ASSESSMENT: The learning needs assessment revealed no barriers. SKIN INTEGRITY ASSESSMENT: Skin integrity risk assessment completed. No skin integrity risk identified. --19:48 Monica Smith R.N. PAST MEDICAL HX: ( Patient states he has been out of colchicine for the past 3 days. Patient's reports "every time he doesn't take his gout medicine, he ends up in the hospital. He always has HBP when he comes in"). --19:51 Monica Smith R.N. PROBLEMS: Contusion. Sprain. Atypical Chest Pain. Hypertension. Gout. --19:43 Monica Smith R.N. ADDITIONAL SURGERIES: Rt shoulder rotator cuff. Shoulder Surgery. --19:44 Monica Smith R.N. Interventions ID band on patient. To treatment room. --19:48 Monica Smith R.N. PHYSICAL ASSESSMENT 19:50 06/27/16. To room via wheelchair. GENERAL / NEURO / PSYCH: Alert. Oriented X 4. Appears in no acute distress. HEENT: No facial asymmetry noted. Mucous membranes are pink. RESPIRATORY: Respirations not labored. The patient can speak in full sentences. Chest nontender. Breath sounds within normal limits. CVS: Capillary refill less than 2 seconds. Pulses within normal limits. GI / : Abdomen soft and nontender and normal bowel sounds. SKIN: Skin intact. Skin is warm and dry. Normal skin turgor. --19:50 Monica Smith R.N. NURSING PROGRESS NOTES 21:47 06/27/2016 Diazepam (Diazepam) IM 10 mg given. Given in the right anterior lateral thigh. Allergies verified, confirmed 5 rights and sedative warning given to the patient and patient's family. --21:47 Monica Smith R.N. DISPOSITION / DISCHARGE 22:06 06/27/16. Condition at departure: stable. The goals identified in the patient's plan of care were met. ( Provider aware of vitals, patient clear for discharge.). --22:06 Andreina Pope 22:04 06/27/16. BP: 173/99. HR: 79. RR: 20. O2 saturation: 93% on room air. Temp: 98.9 F (oral). Pain level now: 0/10. --22:06 Andreina Pope Departure time: 2207. --22:09 Andreina Pope. Locked/Released at 06/28/2016 0:34 by Monica Smith R.N.
--- NOTE | 2016-06-27 21:58 | ED ORDER SUMMARY ---
..... Patient: ASHLIE MAXWELL OrderSheet [facility] VisitID: [id number] [address] [place] [address] 71y, M Registration Date/Time: 06/27/2016 ORDER SHEET Weight: 104.3 kg (stated) Allergies: No Known Drug Allergy GENERAL ORDERS: MEDICATION ORDERS: Diazepam IM 10 mg (HIGH ALERT MEDICATION, NOW) (21:07 06/27/2016 Valerio Lopes) (Ack 21:11 Aidee R.NAbby) (21:47 Aidee Chicas.Cristina) IV FLUIDS: ORDER SHEET NOTES: [Electronically signed by Imer Glez Dr. (22:00 06/27/2016)] [Electronically signed by Monica Smith R.N. (00:34 06/28/2016)] [Electronically locked/signed by Monica Smith R.N. (00:34 06/28/2016)]
--- NOTE | 2016-06-27 21:58 | ED NURSING NOTES ---
Clinical Report - Nurses [facility] [address] [place] [address] 06/27/2016 19:21 Patient: ASHLIE MAXWELL TRIAGE Triage time 19:28. Acuity: LEVEL 3. Chief Complaint: (numbness in back, pain in neck). 19:48 06/27/16. Alert. No acute distress. SEPSIS SCREEN: Sepsis Screen. Negative (no infection suspected/documented). CHARMAINE COMA SCORE: Adams Coma Scale: 15- eyes open spontaneously (4); best verbal response- oriented x 4 (5); best motor response- obeys commands (6). --19:48 Monica Smith R.N. 19:41 06/27/16. BP: 199/89. HR: 80. RR: 20. O2 saturation: 95%. Temp: 98.9 F. Pain level now: 11/16. --19:48 Monica Smith R.N. 19:51 06/27/16. --19:51 Monica Smith R.N. Weight: 104.3 kg stated. Height/Length: 69 inches Per Patient. BMI: 34. --19:47 Monica Smith R.N. Medications Colchicine Oral 0.6 mg, daily. Indomethacin Oral 25 mg, 2x a day. Metoprolol Tartrate Oral 100 mg, BID. --19:43 Monica Smith R.N. Allergies No Known Drug Allergy. --19:43 Monica Smith R.N. History Arrived by private vehicle. Historian: patient and family. Accompanied by family. Primary physician (Dr Soni at the [facility]). Onset. (3 days ago). He has had weakness and a cough. 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 PAST MEDICAL HX: Immunizations: up-to-date. SOCIAL HX: Former smoker, end date 1976. Heavy alcohol use. (Patient states "I drink at least 3 beers a day"). No drug use. FALL RISK ASSESSMENT: Fall risk assessment completed. No fall risk identified. NUTRITIONAL RISK ASSESSMENT: The nutritional risk assessment revealed no deficiencies. FUNCTIONAL ASSESSMENT: Functional assessment: no impairments noted. LEARNING NEEDS ASSESSMENT: The learning needs assessment revealed no barriers. SKIN INTEGRITY ASSESSMENT: Skin integrity risk assessment completed. No skin integrity risk identified. --19:48 Monica Smith R.N. PAST MEDICAL HX: ( Patient states he has been out of colchicine for the past 3 days. Patient's reports "every time he doesn't take his gout medicine, he ends up in the hospital. He always has HBP when he comes in"). --19:51 Monica Smith R.N. PROBLEMS: Contusion. Sprain. Atypical Chest Pain. Hypertension. Gout. --19:43 Monica Smith R.N. ADDITIONAL SURGERIES: Rt shoulder rotator cuff. Shoulder Surgery. --19:44 Monica Smith R.N. Interventions ID band on patient. To treatment room. --19:48 Monica Smith R.N. PHYSICAL ASSESSMENT 19:50 06/27/16. To room via wheelchair. GENERAL / NEURO / PSYCH: Alert. Oriented X 4. Appears in no acute distress. HEENT: No facial asymmetry noted. Mucous membranes are pink. RESPIRATORY: Respirations not labored. The patient can speak in full sentences. Chest nontender. Breath sounds within normal limits. CVS: Capillary refill less than 2 seconds. Pulses within normal limits. GI / : Abdomen soft and nontender and normal bowel sounds. SKIN: Skin intact. Skin is warm and dry. Normal skin turgor. --19:50 Monica Smith R.N. NURSING PROGRESS NOTES 21:47 06/27/2016 Diazepam (Diazepam) IM 10 mg given. Given in the right anterior lateral thigh. Allergies verified, confirmed 5 rights and sedative warning given to the patient and patient's family. --21:47 Monica Smith R.N. DISPOSITION / DISCHARGE 22:06 06/27/16. Condition at departure: stable. The goals identified in the patient's plan of care were met. ( Provider aware of vitals, patient clear for discharge.). --22:06 Andreina Pope 22:04 06/27/16. BP: 173/99. HR: 79. RR: 20. O2 saturation: 93% on room air. Temp: 98.9 F (oral). Pain level now: 0/10. --22:06 Andreina Pope Departure time: 2207. --22:09 Andreina Pope. Locked/Released at 06/28/2016 0:34 by Monica Smith R.N.
--- NOTE | 2016-06-27 21:58 | ED ORDER SUMMARY ---
..... Patient: ASHLIE MAXWELL OrderSheet [facility] VisitID: [id number] [address] [place] [address] 71y, M Registration Date/Time: 06/27/2016 ORDER SHEET Weight: 104.3 kg (stated) Allergies: No Known Drug Allergy GENERAL ORDERS: MEDICATION ORDERS: Diazepam IM 10 mg (HIGH ALERT MEDICATION, NOW) (21:07 06/27/2016 Valerio Lopes) (Ack 21:11 Aidee R.NAbby) (21:47 Aidee Chicas.Cristina) IV FLUIDS: ORDER SHEET NOTES: [Electronically signed by Imer Glez Dr. (22:00 06/27/2016)] [Electronically signed by Monica Smith R.N. (00:34 06/28/2016)] [Electronically locked/signed by Monica Smith R.N. (00:34 06/28/2016)]
--- NOTE | 2016-06-28 00:34 | ED MAR SUMMARY ---
..... Medication Administration Record [facility] [address] [place] [address] Patient: ASHLIE MAXWELL Visit ID: [id number] 71y, M Weight: 104.3 kg Height/Length: 69 in BMI: 34 ALLERGIES: No Known Drug Allergy Given 21:47 06/27/2016 Monica Smith R.N. Medication Administered: DIAZEPAM [IM] (DIAZEPAM), Dose: 10 mg IM. Medication Ordered: Diazepam IM 10 mg (HIGH ALERT MEDICATION, NOW).
--- NOTE | 2016-06-28 00:34 | ED MED RECONCILIATION SUMMARY ---
Patient: ASHLIE MAXWELL Medication Reconciliation Report [facility] VisitID: [id number] [address] [place] [address] 71y, M Registration Date/Time: 06/27/2016 Weight: 104.3 kg Height/Length: 69 in. BMI: 34.0 ALLERGIES: No Known Drug Allergy The patient's Home Medications are listed below: CONTINUE TAKING THE FOLLOWING MEDICATIONS: Colchicine Oral 0.6 mg, daily Indomethacin Oral 25 mg, 2x a day Metoprolol Tartrate Oral 100 mg, BID The source(s) of the original Home Medication information: Not obtained. The following Medications were given to the patient in the Emergency Department: Diazepam [IM] IM 10 mg, administered: 06/27/2016 9:47:00 PM The following Medications were prescribed to the patient: Baclofen 20 mg: take 1 orally every 8 hours. Dispense thirty (30). No refills. -- Imer Glez Dr. Colchicine 0.6 mg tablets: take 1 tablet orally every 1-2 hours as needed for pain. Do not take more than 4 mg in one day. Dispense thirty (30). No refills. -- Imer Glez Dr.
--- NOTE | 2016-06-28 00:34 | ED MAR SUMMARY ---
..... Medication Administration Record [facility] [address] [place] [address] Patient: ASHLIE MAXWELL Visit ID: [id number] 71y, M Weight: 104.3 kg Height/Length: 69 in BMI: 34 ALLERGIES: No Known Drug Allergy Given 21:47 06/27/2016 Monica Smith R.N. Medication Administered: DIAZEPAM [IM] (DIAZEPAM), Dose: 10 mg IM. Medication Ordered: Diazepam IM 10 mg (HIGH ALERT MEDICATION, NOW).
--- NOTE | 2016-06-28 00:34 | ED DISCHARGE INSTRUCTIONS ---
Patient: ASHLIE MAXWELL General Instructions [facility] VisitID: [id number] [place] [address] 71y, M Registration Date/Time: 06/27/2016 Acute lumbar strain. Acute cervical strain. INSTRUCTIONS No lifting greater than 10 lbs until well. Your Current Medications: CONTINUE TAKING THE FOLLOWING MEDICATIONS: Colchicine Oral : 0.6 mg daily. Indomethacin Oral : 25 mg 2x a day. Metoprolol Tartrate Oral : 100 mg BID. Prescription Medications: Baclofen 20 mg: take 1 orally every 8 hours. Dispense thirty (30). No refills. Colchicine 0.6 mg tablets: take 1 tablet orally every 1-2 hours as needed for pain. Do not take more than 4 mg in one day. Dispense thirty (30). No refills. Follow-up: Follow up with your doctor in about two days. Call for an appointment. Blood pressure screening was not performed during this visit because the patient has an active diagnosis of hypertension. ADDITIONAL INFORMATION Back Pain [Acute Or Chronic] Back pain is usually caused by an injury to the muscles or ligaments of the spine. Sometimes the disks that separate each bone in the spine may bulge and cause pain by pressing on a nearby nerve. Back pain may also appear after a sudden twisting/bending force (such as in a car accident), after a simple awkward movement, or lifting something heavy with poor body positioning. In either case, muscle spasm is often present and adds to the pain. Acute back pain usually gets better in one to two weeks. Back pain related to disk disease, arthritis in the spinal joints or spinal stenosis (narrowing of the spinal canal) can become chronic and last for months or years. Unless you had a physical injury (for example, a car accident or fall) X-rays are usually not ordered for the initial evaluation of back pain. If pain continues and does not respond to medical treatment, x-rays and other tests may be performed at a later time. Home Care: You may need to stay in bed the first few days. But, as soon as possible, begin sitting or walking to avoid problems with prolonged bed rest (muscle weakness, worsening back stiffness and pain, blood clots in the legs). When in bed, try to find a position of comfort. A firm mattress is best. Try lying flat on your back with pillows under your knees. You can also try lying on your side with your knees bent up towards your chest and a pillow between your knees. Avoid prolonged sitting. This puts more stress on the lower back than standing or walking. During the first two days after injury, apply an ICE PACK to the painful area for 20 minutes every 2-4 hours. This will reduce swelling and pain. HEAT (hot shower, hot bath or heating pad) works well for muscle spasm. You can start with ice, then switch to heat after two days. Some patients feel best alternating ice and heat treatments. Use the one method that feels the best to you. You may use acetaminophen (Tylenol) or ibuprofen (Motrin, Advil) to control pain, unless another pain medicine was prescribed. [NOTE: If you have chronic liver or kidney disease or ever had a stomach ulcer or GI bleeding, talk with your doctor before using these medicines.] Be aware of safe lifting methods and do not lift anything over 15 pounds until all the pain is gone. Follow Up with your doctor or this facility if your symptoms do not start to improve after one week. Physical therapy may be needed. [NOTE: If X-rays were taken, they will be reviewed by a radiologist. You will be notified of any new findings that may affect your care.] Get Prompt Medical Attention if any of the following occur: Pain becomes worse or spreads to your legs Weakness or numbness in one or both legs Loss of bowel or bladder control Numbness in the groin or genital area Neck Sprain Or Strain A sudden force that causes turning or bending of the neck (such as in a car accident) can stretch or tear muscles (strain) and ligaments (sprain) and cause neck pain. Sometimes neck pain occurs after a simple awkward movement. In either case, muscle spasm is commonly present and contributes to the pain. Unless you had a forceful physical injury (for example, a car accident or fall), X-rays are usually not ordered for the initial evaluation of neck pain. If pain continues and dose not respond to medical treatment, X-rays and other tests may be performed at a later time. Home care The following guidelines will help you care for your injury at home: You may feel more soreness and spasm the first few days after the injury. Reduce your activity level until symptoms begin to improve. When lying down, use a comfortable pillow that supports the head and keeps the spine in a neutral position. The position of the head should not be tilted forward or backward. Use ice packs (ice in a plastic bag, wrapped in a towel) to treat acute pain. Apply for 20 minutes every 24 hours during the first two days. Then, begin local heat (hot shower, hot bath or heating pad) andmassageto reduce muscle spasm. Some patients feel best alternating hot and cold treatments, or just staying with one method only. Do what feels the best to you and gives the most relief. You may use acetaminophen or ibuprofen to control pain, unless another pain medicine was prescribed.If you have chronic liver or kidney disease or ever had a stomach ulcer or GI bleeding, talk with your doctor before using these medicines. Follow-up care Follow up with your physician or this facility if your symptoms do not show signs of improvement. Physical therapy may be needed. If you had X-rays today, they didnt show any broken bones, breaks, or fractures. Sometimes fractures dont show up on the first X-ray. Bruises and sprains can sometimes hurt as much as a fracture. These injuries can take time to heal completely. If your symptoms dont improve or they get worse, talk with your doctor. You may need a repeat X-ray. When to seek medical care Get prompt medical attention if any of the following occur: Pain becomes worse or spreads into your arms Weakness or numbness in one or both arms You have been given the following additional information: Back Pain (Acute Or Chronic) Neck Sprain/Strain No lifting greater than 10 lbs until well. (Electronically signed by Imer Glez Dr. 06/27/2016 22:00)
--- NOTE | 2016-06-28 00:34 | ED MED RECONCILIATION SUMMARY ---
Patient: ASHLIE MAXWELL Medication Reconciliation Report [facility] VisitID: [id number] [address] [place] [address] 71y, M Registration Date/Time: 06/27/2016 Weight: 104.3 kg Height/Length: 69 in. BMI: 34.0 ALLERGIES: No Known Drug Allergy The patient's Home Medications are listed below: CONTINUE TAKING THE FOLLOWING MEDICATIONS: Colchicine Oral 0.6 mg, daily Indomethacin Oral 25 mg, 2x a day Metoprolol Tartrate Oral 100 mg, BID The source(s) of the original Home Medication information: Not obtained. The following Medications were given to the patient in the Emergency Department: Diazepam [IM] IM 10 mg, administered: 06/27/2016 9:47:00 PM The following Medications were prescribed to the patient: Baclofen 20 mg: take 1 orally every 8 hours. Dispense thirty (30). No refills. -- Imer Glez Dr. Colchicine 0.6 mg tablets: take 1 tablet orally every 1-2 hours as needed for pain. Do not take more than 4 mg in one day. Dispense thirty (30). No refills. -- Imer Glez Dr.
== END 2016-06-27 22:08 | disposition home or self-care (01) ==
LOC: ED SRH 19:19
DX: S39.012A Strain of muscle, fascia and tendon of lower back, initial encounter (principal); S16.1XXA Strain of muscle, fascia and tendon at neck level, initial encounter; X58.XXXA Exposure to other specified factors, initial encounter; Y93.9 Activity, unspecified; Y99.9 Unspecified external cause status; Y92.9 Unspecified place or not applicable; I10 Essential (primary) hypertension; Z79.899 Other long term (current) drug therapy; Z87.891 Personal history of nicotine dependence

== ENCOUNTER 2016-06-29 16:03 | Emergency (ER) | payer OTHER ==
--- NOTE | 2016-06-29 17:15 | DIAGNOSTIC IMAGING REPORT ---
PROCEDURE: XR CHEST 1 VIEW INDICATION: CHEST PAIN TECHNIQUE: Portable AP view 04:40 p.m. COMPARISON: Chest 11/13/2013 FINDINGS: Allowing for suboptimal inspiration and overlying wires and electrodes, lungs are clear. Heart is enlarged. Thorax is normal. IMPRESSION: 1. Cardiomegaly. No acute infiltrates
--- NOTE | 2016-06-29 18:11 | DIAGNOSTIC IMAGING REPORT ---
PROCEDURE: CT ABDOMEN/PELVIS W/O CONTRAST INDICATION: Left flank pain x 1 week. TECHNIQUE: Noncontrast axial images were obtained of the entire abdomen and pelvis with sagittal and coronal reformations. COMPARISON: None. FINDINGS: ABDOMEN: No urinary calculi or hydronephrosis. Lung base are clear. Heart size is normal. Liver, gallbladder, pancreas, spleen and adrenal glands are normal. Minor atherosclerosis of the aorta. Nonspecific bowel gas pattern. PELVIS: Normal appendix. Minor sigmoid diverticulosis. Prostatic dystrophic calcifications. Normal bladder. There is no pelvic mass, inflammatory changes or free fluid. Small bilateral fat filled inguinal hernias. Moderate L5-S1 disc space narrowing. IMPRESSION: 1. No evidence of urinary calculi or hydronephrosis 2. Minor sigmoid diverticulosis 3. Results discussed with Dr. Lazo All CT scans at this facility use dose modulation, iterative reconstruction, and/or weight-based dosing when appropriate to reduce radiation dose to as low as reasonably achievable.
--- NOTE | 2016-06-29 19:14 | ED ORDER SUMMARY ---
..... Patient: ASHLIE MAXWELL OrderSheet [facility] VisitID: [id number] [address] [place] [address] 71y, M Registration Date/Time: 06/29/2016 ORDER SHEET Weight: 106.5 kg (stated) Allergies: No Known Drug Allergy GENERAL ORDERS: Chest 1V Urgent (16:06/29/2016 Lamin SHANE) (Ack 16:31 [facility] Tech1) (18:33 MCampbell) CT Abd/Pel wo Cont Urgent (16:06/29/2016 Lamin SHANE) (Ack 16:31 [facility] Tech1) (18:33 MCampquiana) CBC w Diff Urgent (16:06/29/2016 Lamin SHANE) (Ack 16:31 [facility] Tech1) (16:57 Tatyana R.N.) CMP Urgent (16:06/29/2016 Lamin SHANE) (Ack 16:31 [facility] ER Tech1) (16:57 Tatyana R.N.) UA-Culture if indicated Urgent (16:06/29/2016 Lamin SHANE) (Ack 16:31 [facility] Tech1) (17:12 Tatyana R.N.) TSH Urgent (16:06/29/2016 Lamin SHANE) (Ack 16:31 [facility] Tech1) (16:57 Tatyana R.N.) MEDICATION ORDERS: IV FLUIDS: IV NS : initial bolus 1000 mL (1000 mL/hr), then none - (NOW) (16:06/29/2016 Lamin SHANE) (Ack 16:40 Tatyana R.N.) (16:56 Tatyana R.N.) Metoprolol IV 5 mg (HIGH ALERT MEDICATION, NOW) (16:06/29/2016 Lamin SHANE) (Ack 16:40 Tatyana R.N.) (16:57 Tatyana R.N.) Dilaudid IV 1 mg (HIGH ALERT MEDICATION, NOW) (17:06/29/2016 Lamin SHANE) (Ack 17:02 Tatyana R.N.) (17:12 Tatyana R.N.) Toradol IV 30 mg (NOW) (17:06/29/2016 Lamin SHANE) (Ack 17:02 Tatyana Hollingsworth) (17:11 Tatyana Hollingsworth) ORDER SHEET NOTES: [Electronically signed by Sabrina Guadalupe R.N. (06/29/2016)] [Electronically signed by Rosa Maria Lazo MD (07:40 07/01/2016)] [Electronically locked/signed by Sabrina Guadalupe R.N. (06/29/2016)]
--- NOTE | 2016-06-29 19:14 | ED ORDER SUMMARY ---
..... Patient: ASHLIE MAXWELL OrderSheet [facility] VisitID: [id number] [address] [place] [address] 71y, M Registration Date/Time: 06/29/2016 ORDER SHEET Weight: 106.5 kg (stated) Allergies: No Known Drug Allergy GENERAL ORDERS: Chest 1V Urgent (16:06/29/2016 Lamin SHANE) (Ack 16:31 [facility] ER Tech1) (18:33 MCampbell) CT Abd/Pel wo Cont Urgent (16:06/29/2016 Lamin SHANE) (Ack 16:31 [facility] ER Tech1) (18:33 MCampquiana) CBC w Diff Urgent (16:06/29/2016 Lamin SHANE) (Ack 16:31 [facility] ER Tech1) (16:57 Tatyana R.N.) CMP Urgent (16:06/29/2016 Lamin SHANE) (Ack 16:31 [facility] ER Tech1) (16:57 Tatyana R.N.) UA-Culture if indicated Urgent (16:06/29/2016 Lamin SHANE) (Ack 16:31 [facility] ER Tech1) (17:12 Tatyana R.N.) TSH Urgent (16:06/29/2016 Lamin SHANE) (Ack 16:31 [facility] ER Tech1) (16:57 Tatyana R.N.) MEDICATION ORDERS: IV FLUIDS: IV NS : initial bolus 1000 mL (1000 mL/hr), then none - (NOW) (16:06/29/2016 Lamin SHANE) (Ack 16:40 Tatyana R.N.) (16:56 Tatyana R.N.) Metoprolol IV 5 mg (HIGH ALERT MEDICATION, NOW) (16:06/29/2016 Lamin SHANE) (Ack 16:40 Tatyana R.N.) (16:57 Tatyana R.N.) Dilaudid IV 1 mg (HIGH ALERT MEDICATION, NOW) (17:06/29/2016 Lamin SHANE) (Ack 17:02 Tatyana R.N.) (17:12 Tatyana R.N.) Toradol IV 30 mg (NOW) (17:06/29/2016 Lamin SHANE) (Ack 17:02 Tatyana Hollingsworth) (17:11 Tatyana Hollignsworth) ORDER SHEET NOTES: [Electronically signed by Sabrina Guadalupe R.N. (06/29/2016)] [Electronically signed by Rosa Maria Lazo MD (07:40 07/01/2016)] [Electronically locked/signed by Sabrina Guadalupe R.N. (06/29/2016)]
--- NOTE | 2016-06-29 19:14 | ED CLINICAL REPORT ---
Clinical Report - Physicians/Mid Levels [facility] [address] [place] [address] 06/29/2016 16:03 Patient: ASHLIE MAXWELL Time Seen: 16:22. Arrived- By ambulance. Historian- patient and EMS personnel. HISTORY OF PRESENT ILLNESS Chief Complaint: BACK PAIN right flank pain. It is described as being moderate in degree and in the area of the right flank and radiating to the right upper quadrant of the abdomen. The quality is noted to be "pain". Onset- about 3 days ago and it is still present. Modifying factors. (Movement and palpation worsen) Not relieved by anything. No bladder dysfunction, bowel dysfunction, sensory loss or motor loss. Additional history - Patient does note that he did not take his metoprolol this morning. He denies any palpitations or chest pain. No shortness of breath. Patient notes the possibility of an injury. Mechanism of injury- (patient and his state that the patient was trying to pull a cord to start a lawnmower but the cords stuck as patient was pulling back forcefully. Patient felt a pain in the right shoulder and neck, but then the pain moved to his right back and flank.). No other injury. Similar symptoms previously: Recent medical care: The patient was seen recently at this facility in the emergency department. ( patient was seen here 3 days ago and given a "shot", which patient states did not help. He also was given "muscle relaxers" which he also states has not helped the pain.). REVIEW OF SYSTEMS No fever, chills, eye discomfort, headache or sore throat. No cough, difficulty breathing, chest pain, skin rash or abdominal pain. No nausea, vomiting, diarrhea, black stools or difficulty with urination. No urinary frequency, hematuria or bloody stools. All systems otherwise negative, except as recorded above. PAST HISTORY Problems: Cervical Strain. Lumbar Strain. Hypertension. Gout. Additional Surgeries: Rt shoulder rotator cuff. Shoulder Surgery. Medications: Baclofen 20 mg, 3x a day. Colchicine Oral 0.6 mg, daily. Indomethacin Oral 25 mg, 2x a day. Metoprolol Tartrate Oral 100 mg, BID. Allergies: No Known Drug Allergy. SOCIAL HISTORY Former smoker. Alcohol use. No drug use. ADDITIONAL NOTES The nursing notes have been reviewed. PHYSICAL EXAM Vital Signs: 06/29/2016 16:07 BP: 185/102. HR: 133. RR: 18. O2 saturation: 95%. Temp: 98.6 F. Pain level now: 9/10. Have been reviewed. Appearance: Alert. No acute distress. (atient appears moderately uncomfortable.). HEENT: Normal external inspection. Eyes: Pupils equal, round and reactive to light. Neck: Moderate acute decrease in ROM secondary to pain. No vertebral tenderness. Soft tissue tenderness (Patient has tenderness over his right trapezius distribution.). CVS: Tachycardia. Heart sounds normal. Pulses normal. Respiratory: No respiratory distress. Breath sounds normal. (Patient has mild tenderness over his right lateral chest wall.). Abdomen: Normal inspection. Soft. (Patient has right flank tenderness.). Back: (Patient has tenderness over his right lower thoracic region extending into his right flank.). Skin: Skin warm and dry. Normal skin color. No rash. Normal skin turgor. Extremities: Extremities exhibit normal ROM. Extremities nontender. Neuro: Mood/affect normal. No motor deficit. No sensory deficit. (Patient is grossly oriented.). LABS, X-RAYS, AND EKG EKG: EKG time: (1617). Rate: 130. Regular narrow-complex tachycardia. Sinus tachycardia. Occasional wide-complex and ventricular ectopic beats (occasional, narrow complex PACs noted, as well). Premature ventricular contractions. Normal P waves. Normal ANJALI. Normal QRS complex. Normal axis. Normal QT and QTc. Non-specific ST segment / T wave abnormalities. Prior EKG unavailable. The study has been interpreted contemporaneously by me. The study has been independently viewed by me. The EKG appears to be a good tracing. Chest X-ray: No acute disease. Normal lung markings present. Normal heart size. Mediastinum normal. Great vessels normal. Soft tissues normal. No infiltrate. No fracture. No bony lesion present. Views: AP (portable). Technique: good. The X-rays were independently viewed by me, interpreted by the radiologist and contemporaneously by me and discussed with the radiologist. Prior films were not available for comparison. CT Abdomen - Pelvis: Normal study. Normal aorta. Normal liver, spleen, pancreas, gallbladder and adrenals. Normal kidneys. Bladder normal. Appendix normal. No mass. No free fluid. No bony lesion. No diverticulitis. Study type: renal stone evaluation. Abdomen - pelvic CT performed without contrast. The study was independently viewed by me, interpreted by the radiologist and contemporaneously by me and discussed with the radiologist. Prior studies were not available for comparison. Laboratory Tests: UA-Culture if indicated: (ALEX: 06/29/2016 17:10) ( [facility] 06/29/2016 18:15) Final results Test Result Flag Units (Reference) URINE COLOR TORI URINE APPEARANCE CLEAR URINE GLUCOSE NEGATIVE (NEGATIVE) URINE BILIRUBIN 1+ (NEGATIVE) URINE KETONE 1+ (NEGATIVE) URINE SPECIFIC GRAVITY >= 1.030 (1.010-1.030) URINE PH 6.0 (5.0-8.0) URINE PROTEIN 2+ (NEGATIVE) URINE UROBILINOGEN 0.2 EU/dL (0.2-1.0) URINE NITRITE NEGATIVE (NEGATIVE) URINE BLOOD TRACE-LYSED (NEGATIVE) URINE LEUK ESTERASE NEGATIVE (NEGATIVE) URINE RBC 0-1 rbc/hpf (0-1) URINE WBC 0-1 wbc/hpf (0-1) URINE EPITHELIAL CELLS 1-3 EPI/hpf (0-5) URINE BACTERIA TRACE (<1+) (NONE SEEN) URINE COMMENT CULT NOT INDICATED 2+ MUCUSICTO TEST NEGURINE CULTURES ARE SET-UP BASED ON THE FOLLOWING CRITERIA:POSITIVE NITRITEPOSITIVE LEUKOCYTE ESTERASEGREATER THAN 10 WHITE BLOOD CELLSMODERATE (2+) OR GREATER BACTERIA CBC w Diff: (ALEX: 06/29/2016 16:55) ( [facility] 06/29/2016 17:08) Final results Test Result Flag Units (Reference) WHITE BLOOD COUNT 13.5 H K/uL (4.5-11.5) RED BLOOD COUNT 5.50 M/uL (4.50-5.90) HEMOGLOBIN 17.5 gm/dL (13.5-17.5) HEMATOCRIT 52.0 % (41.0-53.0) MEAN CELL VOLUME 95 fL (80-100) MEAN CORPUSCULAR HGB 32 pg (26-34) MEAN CORPUSCULAR HGB CONC 34 g/dL (31-37) RED CELL DISTRIBUTION WIDTH 14.8 % (11.6-14.8) PLATELET COUNT 189 K/uL (150-400) NEUTROPHIL % 77.6 H % (50-75) LYMPH % 8.0 L % (25-40) MONO % 12.9 % (3-14) EOSINOPHIL % 1.1 % (0-4) BASOPHIL % 0.4 % (0-2) CMP: (ALEX: 06/29/2016 16:55) ( MsgRcvd 06/29/2016 17:48) Final results Test Result Flag Units (Reference) GLUCOSE 135 H mg/dL (70-110) BUN 15 mg/dL (7-18) CREATININE 1.1 mg/dL (0.6-1.3) Estimated GFR >60 mL/min Estimated GFR- >60 mL/min Note: Persistent reduction over 3 months in eGFR<60 mL/min/1.73 m2 defines CKD. Patients with eGFR values>=60 mL/min/1.73 m2 may also have CKD if evidence ofpersistent proteinuria. Additional information may be foundat [email or web address].org. SODIUM 139 mmol/L (136-145) POTASSIUM 4.1 mmol/L (3.5-5.1) CHLORIDE 103 mmol/L (98-107) CARBON DIOXIDE 23 mmol/L (21-32) CALCIUM 8.8 mg/dL (8.5-10.1) TOTAL PROTEIN 7.8 g/dL (6.4-8.2) ALBUMIN 3.4 g/dL (3.3-5.0) BILIRUBIN, TOTAL 1.4 H mg/dL (0.0-1.0) ALKALINE PHOSPHATASE 90 U/L (46-116) AST (SGOT) 21 U/L (15-37) ALT (SGPT) 29 U/L (12-78) THYROID STIMULATING HORMONE 2.981 uIU/mL (0.30-3.74) . Pulse Oximetry: 06/29/2016 16:07 O2 saturation: 95%. (FIO2 - room air). Interpretation: normal. PROGRESS AND PROCEDURES Course of Care: Patient was evaluated by myself upon arrival in the emergency department EMS. I did feel he should be worked up for his symptoms, as well as for his tachycardia. As such, laboratory studies were done, including a TSH. Patient was found to have a mild leukocytosis, but otherwise labs were unremarkable. Chest x-ray was unremarkable. EKG did show sinus tachycardia. Urinalysis showed no infection but did show trace blood. Given the patient's right flank and back pain, I did feel he should be evaluated with CT scan for a possible urinary calculus. This was done and the CT scan was found to be unremarkable. The patient was treated with a liter ofIV fluid as well as an IV dose of metoprolol 5 mg, which did immediately bring his heart rate down into the 80s to 90s. He was also given IV Dilaudid and Toradol. No emergent condition was identified and I did feel the patient was stable for discharge home. Patient and family counseled in person regarding the patient's stable condition, test results, diagnosis and need for follow-up. Concerns were addressed. Old medical records reviewed. Disposition: Discharged. Condition: stable and improved. CLINICAL IMPRESSION Acute nontraumatic thoracic and lumbar back pain. (muscle spasm). INSTRUCTIONS Apply ice for 20 minutes three times a day as needed and until better. Don't apply ice directly to skin and don't use while asleep. Warnings: SEDATIVE MEDICATION: You were given sedative medication during your visit. Do not drive or operate dangerous machinery for 8 hours. GENERAL WARNINGS: Return or contact your physician immediately if your condition worsens or changes unexpectedly, if not improving as expected, or if other problems arise. Your Current Medications: CONTINUE TAKING THE FOLLOWING MEDICATIONS: Baclofen* : 20 mg 3x a day. Colchicine Oral : 0.6 mg daily. Indomethacin Oral : 25 mg 2x a day. Metoprolol Tartrate Oral : 100 mg BID. Prescription Medications: Oxycodone/APAP 5 mg/325 mg: take 1-2 tablets orally every 4 hours as needed for pain. Dispense twenty-five (25). No refill. Follow-up: Follow up with your doctor in five days if not better. Understanding of the discharge instructions verbalized by patient. (Electronically signed by Rosa Maria Lazo MD 07/01/2016 7:40)
--- NOTE | 2016-06-29 19:14 | ED NURSING NOTES ---
Clinical Report - Nurses [facility] [address] [place] [address] 06/29/2016 16:03 Patient: ASHLIE MAXWELL TRIAGE Triage time 16:07. Acuity: LEVEL 3. Chief Complaint: BACK PAIN and (right side back). Alert. No acute distress. NEERU COMA SCORE: Neeru Coma Scale: 15- eyes open spontaneously (4); best verbal response- oriented x 4 (5); best motor response- obeys commands (6). --16:15 Sabrina Guadalupe R.N. 16:07 06/29/16. BP: 185/102. HR: 133. RR: 18. O2 saturation: 95%. Temp: 98.6 F (oral). Pain level now: 10. --16:15 Sabrina Guadalupe R.N. Weight: 106.5 kg stated. Height/Length: 69 inches Per Patient. BMI: 34.7. --16:14 Sabrina Guadalupe R.N. Medications Colchicine Oral 0.6 mg, daily. Indomethacin Oral 25 mg, 2x a day. Metoprolol Tartrate Oral 100 mg, BID. --16:09 Sabrina Guadalupe R.N. Baclofen 20 mg, 3x a day. --16:16 Sabrina Guadalupe R.N. Medication/allergy information source: other. --16:15 Sabrina Guadalupe R.N. Allergies No Known Drug Allergy. --16:09 Sabrina Guadalupe R.N. History Arrived by EMS. Historian: EMS and patient. Accompanied by family. [facility] physician ([facility]). Onset. (about 2 days). ( EMS arrived on scene and pt was having back spasms and couldn't raise his head up, pain increases in chest with palpation). No history of recent trauma. Treatment [employer] OFFICER: EMS treatment [employer] OFFICER verbally communicated. See EMS report. Upon arrival patient awake. SOCIAL HX: Former smoker. Regular alcohol use; consumes beer weekly. No drug use. LEARNING NEEDS ASSESSMENT: The learning needs assessment revealed no barriers. FALL RISK ASSESSMENT: Fall risk assessment completed. Risk factors identified include patient age greater than 65 years and impairment of mobility. Fall interventions initiated. Patient placed on stretcher. Side rails up x2. Brakes on Bed in low position. FUNCTIONAL ASSESSMENT: Functional assessment performed: requires assistance with the activities of daily living; uses cane- this mobility impairment is an ongoing problem. --16:15 Sabrina Guadalupe R.N. PROBLEMS: Cervical Strain. Lumbar Strain. Contusion. Sprain. Atypical Chest Pain. Hypertension. Gout. --16:10 Sabrina Guadalupe R.N. ADDITIONAL SURGERIES: Rt shoulder rotator cuff. Shoulder Surgery. --16:10 Sabrina Guadalupe R.N. Assessment GENERAL / NEURO / PSYCH: Alert. Oriented X 4. Appears in no acute distress. Patient appears calm and cooperative. RESPIRATORY: Respirations not labored. CVS: Cardiac rhythm: sinus tachycardia; frequent ectopic beats. SKIN: Skin is warm and dry. --16:15 Sabrina Guadalupe R.N. Interventions ID band on patient. To treatment room. --16:15 Sabrina Guadalupe R.N. <<STRICKEN ENTRY-- 16:12 06/29/2016 Site #1 started prior to arrival by EMS via IV in the left forearm with an 20g angiocath, with aseptic technique and good blood return. --16:12 Sabrina Guadalupe R.N. --END STRIKE>> Change to Details. --21:18 Sabrina Guadalupe R.N. 16:12 06/29/2016 Site #1 started prior to arrival by EMS via IV in the left forearm with an 18g angiocath, with aseptic technique and good blood return. --21:18 Sabrina Guadalupe R.N. PHYSICAL ASSESSMENT 16:17 06/29/16. To room via stretcher. Patient gowned. GENERAL / NEURO / PSYCH: Alert. Oriented X 4. Appears in no acute distress. RESPIRATORY: Respirations not labored. CVS: Cardiac rhythm: sinus tachycardia; frequent ectopic beats. --16:17 Sabrina Guadaluep R.N. NURSING PROGRESS NOTES 16:17 06/29/16. air sampling and monitoring, pulse oximeter and NIBP monitor placed on patient. Head of bed elevated. Call light placed in reach. Side rails up x 2. Bed placed in lowest position. Brakes of bed on. --16:17 Sabrina Guadalupe R.N. EKG time: (1617). EKG was ordered, performed by a tech and shown to the ED physician. --16:30 Dmitry Lozano ER Tech1 16:51 06/29/2016 Started bag #1 1000 mL IV Fluids IV NS (Saline); at 1000 mL/hr over 1 hour(s) via site #1 via IV pump. --16:56 Sabrina Guadalupe R.N. 16:57 06/29/2016 Metoprolol (Metoprolol Tartrate) IVP 5 mg given over 5 minute(s) via site #1. Allergies verified and confirmed 5 rights. IV patency established. IV site checked: no pain, redness, or swelling. IV flushed thoroughly pre- and post-medication administration. IVP given by RN. --16:57 Sabrina Guadalupe R.N. 16:58 06/29/16. Cardiac rhythm: sinus rhythm; occasional ectopic beats. Reassessment after fluids administered and medication administered. He is resting quietly. Overall patient status is improved- he states feels the same. GENERAL / NEURO / PSYCH: Alert. Oriented X 4. RESPIRATORY: No respiratory distress. SKIN: Skin is warm and dry. --16:58 Sabrina Guadalupe R.N. 16:57 06/29/16. BP: 184/98. HR: 98. RR: 19. O2 saturation: 95%. --16:58 Sabrina Guadalupe R.N. Patient ID band checked for patient name and birthdate: patient confirmed. Blood samples drawn from the right antecubital space with 21g butterfly by Givey per protocol ; labeled in presence of the patient and sent to lab: rainbow set. --16:59 Dmitry Lozano, SUE Tech1 Patient transported to [place] by stretcher with tech. --17:11 Sabrina Guadalupe R.N. 17:06 06/29/2016 Toradol IVP 30 mg given over 2 minute(s) via site #1. Allergies verified and confirmed 5 rights. IV patency established. IV site checked: no pain, redness, or swelling. IV flushed thoroughly pre- and post-medication administration. IVP given by RN. --17:11 Sabrina Guadalupe R.N. 17:12 06/29/2016 Dilaudid (HYDROmorphone HCl PF) IVP 1 mg given. via site #1. Allergies verified, confirmed 5 rights and sedative warning given to the patient. IV patency established. IV site checked: no pain, redness, or swelling. IV flushed thoroughly pre- and post-medication administration. IVP given by RN. --17:12 Sabrina Guadalupe R.N. 17:29 06/29/16. Patient returned from CT by stretcher with Givey. --17:29 Sabrina Guadalupe R.N. 17:32 06/29/16. Reassessment after fluids administered, procedure and medication administered. He is calm and resting quietly. Overall patient status is improved- he states feels better (pt able to rest now, when asked how he feels, he keeps his eyes closed and smiles). RESPIRATORY: No respiratory distress. SKIN: Skin is warm and dry. --17:32 Sabrina Guadalupe R.N. 17:32 06/29/16. BP: 140/87. HR: 104. RR: 16. O2 saturation: 91%. Pain level now: cannot qualify. --17:32 Sabrina uGadalupe R.N. 18:19 06/29/16. Reassessment after fluids administered and medication administered. He is sleeping. Overall patient status is improved. RESPIRATORY: No respiratory distress. SKIN: Skin is warm and dry. --18:19 Sabrina Guadalupe R.N. 19:35 06/29/16. The patient is sleeping. Overall patient status is improved- he states feels the same. RESPIRATORY: No respiratory distress. SKIN: Skin is warm and dry. --19:35 Sabrina Guadalupe R.N. 19:34 06/29/16. BP: 162/77. HR: 99. RR: 23. O2 saturation: 94% on room air. Pain level now: cannot qualify. --19:35 Sabrina Guadalupe R.N. ( Dr Lazo at bedside per family request.). --20:19 Long, Afsaneh, R.N. 21:00. Cardiac rhythm: sinus rhythm; occasional ectopic beats. Reassessment after fluids administered and medication administered. He is calm and resting quietly. Overall patient status is improved- he states feels better (questions were answered by ERMD, pt feels better, no spasms at this time, he doesn't want a WC, he wants to walk, amb with assist of family). GENERAL / NEURO / PSYCH: Alert. Oriented X 4. RESPIRATORY: No respiratory distress. SKIN: Skin is warm and dry. --21:22 Sabrina Guadalupe R.N. 18:15 06/29/16. BP: 173/67. HR: 95. RR: 19. O2 saturation: 93% on room air. --21:24 Sabrina Guadalupe R.N. 19:00 06/29/16. BP: 162/77. HR: 98. RR: 21. O2 saturation: 94% on room air. --21:25 Sabrina Guadalupe R.N. 20:15 06/29/16. BP: 142/78. HR: 96. RR: 18. O2 saturation: 95% on room air. --21:26 Sabrina Guadalupe R.N. DISPOSITION / DISCHARGE 21:00 06/29/16. BP: 135/81. HR: 99. RR: 18. O2 saturation: 95% on room air. Pain level now: 05/17. --21:17 Sabrina Guadalupe R.N. Departure time: 2100. Condition at departure: improved and stable. Fall risk assessment completed. Risk factors identified include severe pain and patient age greater than 65 years and impairment of mobility. No learning barriers present. Discharge instructions provided and reviewed with the patient and family. Reviewed medication(s). Prescription(s) given to the patient. Patient and family verbalized understanding. Written instructions provided in French. The patient was discharged home and accompanied by family. He left the Emergency Department ambulatory and via private vehicle. Family member driving. --21:17 Sabrina Guadalupe R.N. 17:20 06/29/2016 Metoprolol IVP Response: symptoms have improved. --21:20 Sabrina Guadalupe R.N. 18:00 06/29/2016 IV Fluids IV NS Discontinued: bag #1 infused. Total amount infused: 1000 mL. --21:20 Sabrina Guadalupe R.N. 21:00 06/29/2016 Site #1 removed upon discharge. Catheter intact. Bandaid applied. --21:18 Sabrina Guadalupe R.N. Locked/Released at 06/29/2016 21:27 by Sabrina Guadalupe R.N.
--- NOTE | 2016-06-29 19:14 | ED NURSING NOTES ---
Clinical Report - Nurses [facility] [address] [place] [address] 06/29/2016 16:03 Patient: ASHLIE MAXWELL TRIAGE Triage time 16:07. Acuity: LEVEL 3. Chief Complaint: BACK PAIN and (right side back). Alert. No acute distress. NEERU COMA SCORE: Neeru Coma Scale: 15- eyes open spontaneously (4); best verbal response- oriented x 4 (5); best motor response- obeys commands (6). --16:15 Sabirna Guadalupe R.N. 16:07 06/29/16. BP: 185/102. HR: 133. RR: 18. O2 saturation: 95%. Temp: 98.6 F (oral). Pain level now: 10. --16:15 Sabrina Guadalupe R.N. Weight: 106.5 kg stated. Height/Length: 69 inches Per Patient. BMI: 34.7. --16:14 Sabrina Guadalupe R.N. Medications Colchicine Oral 0.6 mg, daily. Indomethacin Oral 25 mg, 2x a day. Metoprolol Tartrate Oral 100 mg, BID. --16:09 Sabrina Guadalupe R.N. Baclofen 20 mg, 3x a day. --16:16 Sabrina Guadalupe R.N. Medication/allergy information source: other. --16:15 Sabrina Guadalupe R.N. Allergies No Known Drug Allergy. --16:09 Sabrina Guadalupe R.N. History Arrived by EMS. Historian: EMS and patient. Accompanied by family. [facility] ([facility]). Onset. (about 2 days). ( EMS arrived on scene and pt was having back spasms and couldn't raise his head up, pain increases in chest with palpation). No history of recent trauma. Treatment FAMILY LAWYER: EMS treatment FAMILY LAWYER verbally communicated. See EMS report. Upon arrival patient awake. SOCIAL HX: Former smoker. Regular alcohol use; consumes beer weekly. No drug use. LEARNING NEEDS ASSESSMENT: The learning needs assessment revealed no barriers. FALL RISK ASSESSMENT: Fall risk assessment completed. Risk factors identified include patient age greater than 65 years and impairment of mobility. Fall interventions initiated. Patient placed on stretcher. Side rails up x2. Brakes on Bed in low position. FUNCTIONAL ASSESSMENT: Functional assessment performed: requires assistance with the activities of daily living; uses cane- this mobility impairment is an ongoing problem. --16:15 Sabrina Guadalupe R.N. PROBLEMS: Cervical Strain. Lumbar Strain. Contusion. Sprain. Atypical Chest Pain. Hypertension. Gout. --16:10 Sabrina Guadalupe R.N. ADDITIONAL SURGERIES: Rt shoulder rotator cuff. Shoulder Surgery. --16:10 Sabrina Guadalupe R.N. Assessment GENERAL / NEURO / PSYCH: Alert. Oriented X 4. Appears in no acute distress. Patient appears calm and cooperative. RESPIRATORY: Respirations not labored. CVS: Cardiac rhythm: sinus tachycardia; frequent ectopic beats. SKIN: Skin is warm and dry. --16:15 Sabrina Guadalupe R.N. Interventions ID band on patient. To treatment room. --16:15 Sabrina Guadalupe R.N. <<STRICKEN ENTRY-- 16:12 06/29/2016 Site #1 started prior to arrival by EMS via IV in the left forearm with an 20g angiocath, with aseptic technique and good blood return. --16:12 Sabrina Guadalupe R.N. --END STRIKE>> Change to Details. --21:18 Sabrina Guadalupe R.N. 16:12 06/29/2016 Site #1 started prior to arrival by EMS via IV in the left forearm with an 18g angiocath, with aseptic technique and good blood return. --21:18 Sabrina Guadalupe R.N. PHYSICAL ASSESSMENT 16:17 06/29/16. To room via stretcher. Patient gowned. GENERAL / NEURO / PSYCH: Alert. Oriented X 4. Appears in no acute distress. RESPIRATORY: Respirations not labored. CVS: Cardiac rhythm: sinus tachycardia; frequent ectopic beats. --16:17 Sabrina Guadalupe R.N. NURSING PROGRESS NOTES 16:17 06/29/16. pull over machine operator, pulse oximeter and NIBP monitor placed on patient. Head of bed elevated. Call light placed in reach. Side rails up x 2. Bed placed in lowest position. Brakes of bed on. --16:17 Sabrina Guadalupe R.N. EKG time: (1617). EKG was ordered, performed by a tech and shown to the ED physician. --16:30 Dmitry Lozano ER Tech1 16:51 06/29/2016 Started bag #1 1000 mL IV Fluids IV NS (Saline); at 1000 mL/hr over 1 hour(s) via site #1 via IV pump. --16:56 Sabrian Guadalupe R.N. 16:57 06/29/2016 Metoprolol (Metoprolol Tartrate) IVP 5 mg given over 5 minute(s) via site #1. Allergies verified and confirmed 5 rights. IV patency established. IV site checked: no pain, redness, or swelling. IV flushed thoroughly pre- and post-medication administration. IVP given by RN. --16:57 Sabrina Guadalupe R.N. 16:58 06/29/16. Cardiac rhythm: sinus rhythm; occasional ectopic beats. Reassessment after fluids administered and medication administered. He is resting quietly. Overall patient status is improved- he states feels the same. GENERAL / NEURO / PSYCH: Alert. Oriented X 4. RESPIRATORY: No respiratory distress. SKIN: Skin is warm and dry. --16:58 Sabrina Guadalupe R.N. 16:57 06/29/16. BP: 184/98. HR: 98. RR: 19. O2 saturation: 95%. --16:58 Sabrina Guadalupe R.N. Patient ID band checked for patient name and birthdate: patient confirmed. Blood samples drawn from the right antecubital space with 21g butterfly by [employer] per protocol ; labeled in presence of the patient and sent to lab: rainbow set. --16:59 Dmitry Lozano, SUE Tech1 Patient transported to [place] by stretcher with tech. --17:11 Sabrina Guadlaupe R.N. 17:06 06/29/2016 Toradol IVP 30 mg given over 2 minute(s) via site #1. Allergies verified and confirmed 5 rights. IV patency established. IV site checked: no pain, redness, or swelling. IV flushed thoroughly pre- and post-medication administration. IVP given by RN. --17:11 Sabrina Guadalupe R.N. 17:12 06/29/2016 Dilaudid (HYDROmorphone HCl PF) IVP 1 mg given. via site #1. Allergies verified, confirmed 5 rights and sedative warning given to the patient. IV patency established. IV site checked: no pain, redness, or swelling. IV flushed thoroughly pre- and post-medication administration. IVP given by RN. --17:12 Sabrina Guadalupe R.N. 17:29 06/29/16. Patient returned from CT by stretcher with [employer]. --17:29 Sabrina Guadalupe R.N. 17:32 06/29/16. Reassessment after fluids administered, procedure and medication administered. He is calm and resting quietly. Overall patient status is improved- he states feels better (pt able to rest now, when asked how he feels, he keeps his eyes closed and smiles). RESPIRATORY: No respiratory distress. SKIN: Skin is warm and dry. --17:32 Sabrina Guadalupe R.N. 17:32 06/29/16. BP: 140/87. HR: 104. RR: 16. O2 saturation: 91%. Pain level now: cannot qualify. --17:32 Sabrina Guadalupe R.N. 18:19 06/29/16. Reassessment after fluids administered and medication administered. He is sleeping. Overall patient status is improved. RESPIRATORY: No respiratory distress. SKIN: Skin is warm and dry. --18:19 Sabrina Guadalupe R.N. 19:35 06/29/16. The patient is sleeping. Overall patient status is improved- he states feels the same. RESPIRATORY: No respiratory distress. SKIN: Skin is warm and dry. --19:35 Sabrina Guadalupe R.N. 19:34 06/29/16. BP: 162/77. HR: 99. RR: 23. O2 saturation: 94% on room air. Pain level now: cannot qualify. --19:35 Sabrina Guadalupe R.N. ( Dr Lazo at bedside per family request.). --20:19 Long, Afsaneh, R.N. 21:00. Cardiac rhythm: sinus rhythm; occasional ectopic beats. Reassessment after fluids administered and medication administered. He is calm and resting quietly. Overall patient status is improved- he states feels better (questions were answered by ERMD, pt feels better, no spasms at this time, he doesn't want a WC, he wants to walk, amb with assist of family). GENERAL / NEURO / PSYCH: Alert. Oriented X 4. RESPIRATORY: No respiratory distress. SKIN: Skin is warm and dry. --21:22 Sabrina Guadalupe R.N. 18:15 06/29/16. BP: 173/67. HR: 95. RR: 19. O2 saturation: 93% on room air. --21:24 Sabrina Guadalupe R.N. 19:00 06/29/16. BP: 162/77. HR: 98. RR: 21. O2 saturation: 94% on room air. --21:25 Sabrina Guadalupe R.N. 20:15 06/29/16. BP: 142/78. HR: 96. RR: 18. O2 saturation: 95% on room air. --21:26 Sabrina Guadalupe R.N. DISPOSITION / DISCHARGE 21:00 06/29/16. BP: 135/81. HR: 99. RR: 18. O2 saturation: 95% on room air. Pain level now: 05/17. --21:17 Sabrina Guaadlupe R.N. Departure time: 2100. Condition at departure: improved and stable. Fall risk assessment completed. Risk factors identified include severe pain and patient age greater than 65 years and impairment of mobility. No learning barriers present. Discharge instructions provided and reviewed with the patient and family. Reviewed medication(s). Prescription(s) given to the patient. Patient and family verbalized understanding. Written instructions provided in Yoruba. The patient was discharged home and accompanied by family. He left the Emergency Department ambulatory and via private vehicle. Family member driving. --21:17 Sabrina Guadalupe R.N. 17:20 06/29/2016 Metoprolol IVP Response: symptoms have improved. --21:20 Sabrina Guadalupe R.N. 18:00 06/29/2016 IV Fluids IV NS Discontinued: bag #1 infused. Total amount infused: 1000 mL. --21:20 Sabrina Guadalupe R.N. 21:00 06/29/2016 Site #1 removed upon discharge. Catheter intact. Bandaid applied. --21:18 Sabrina Guadalupe R.N. Locked/Released at 06/29/2016 21:27 by Sabrina Guadalupe R.N.
--- NOTE | 2016-07-01 07:40 | ED MAR SUMMARY ---
..... Medication Administration [facility] [address] [place] [address] Patient: ASHLIE MAXWELL Visit ID: [id number] 71y, M Weight: 106.5 kg Height/Length: 69 in BMI: 34.7 ALLERGIES: No Known Drug Allergy Start 16:51 06/29/2016 Sabrina Guadalupe R.N., Stop 18:00 06/29/2016 Sabrina Guadalupe R.N. Medication Administered: IV NS (SALINE), Dose: IV Fluids over 1 hour(s), Rate: 1000 mL/hr, Dispensed: 1000 mL bag, Site: #1 left forearm. Medication Ordered: IV NS : initial bolus 1000 mL (1000 mL/hr), then none - (NOW). Given 16:57 06/29/2016 Sabrina Guadalupe R.N. Medication Administered: METOPROLOL [IVP] (METOPROLOL TARTRATE), Dose: 5 mg IVP over 5 minute(s), Site: #1 left forearm. Medication Ordered: Metoprolol IV 5 mg (HIGH ALERT MEDICATION, NOW). Given 17:06 06/29/2016 Sabrina Guadalupe R.N. Medication Administered: TORADOL [IVP], Dose: 30 mg IVP over 2 minute(s), Site: #1 left forearm. Medication Ordered: Toradol IV 30 mg (NOW). Given 17:12 06/29/2016 Sabrina Guadalupe R.N. Medication Administered: DILAUDID [IVP] (HYDROMORPHONE HCL PF), Dose: 1 mg IVP, Site: #1 left forearm. Medication Ordered: Dilaudid IV 1 mg (HIGH ALERT MEDICATION, NOW).
--- NOTE | 2016-07-01 07:40 | ED MED RECONCILIATION SUMMARY ---
Patient: ASHLIE MAXWELL Medication Reconciliation Report [facility] VisitID: [id number] [address] [place] [address] 71y, M Registration Date/Time: 06/29/2016 Weight: 106.5 kg Height/Length: 69 in. BMI: 34.7 ALLERGIES: No Known Drug Allergy The patient's Home Medications are listed below: CONTINUE TAKING THE FOLLOWING MEDICATIONS: Baclofen 20 mg, 3x a day Colchicine Oral 0.6 mg, daily Indomethacin Oral 25 mg, 2x a day Metoprolol Tartrate Oral 100 mg, BID The source(s) of the original Home Medication information: other The following Medications were given to the patient in the Emergency Department: IV NS IV Fluids bolus 0, then 1000 mL/hr, administered: 06/29/2016 4:51:00 PM Metoprolol [IVP] IVP 5 mg, administered: 06/29/2016 4:57:00 PM Toradol [IVP] IVP 30 mg, administered: 06/29/2016 5:06:00 PM Dilaudid [IVP] IVP 1 mg, administered: 06/29/2016 5:12:00 PM The following Medications were prescribed to the patient: Oxycodone/APAP 5 mg/325 mg: take 1-2 tablets orally every 4 hours as needed for pain. Dispense twenty-five (25). No refill. -- Rosa Maria Lazo MD
--- NOTE | 2016-07-01 07:40 | ED MAR SUMMARY ---
..... Medication Administration Record [facility] [address] [place] [address] Patient: ASHLIE MAXWELL Visit ID: [id number] 71y, M Weight: 106.5 kg Height/Length: 69 in BMI: 34.7 ALLERGIES: No Known Drug Allergy Start 16:51 06/29/2016 Sabrina Guadalupe R.N., Stop 18:00 06/29/2016 Sabrina Guadalupe R.N. Medication Administered: IV NS (SALINE), Dose: IV Fluids over 1 hour(s), Rate: 1000 mL/hr, Dispensed: 1000 mL bag, Site: #1 left forearm. Medication Ordered: IV NS : initial bolus 1000 mL (1000 mL/hr), then none - (NOW). Given 16:57 06/29/2016 Sabrina Guadalupe R.N. Medication Administered: METOPROLOL [IVP] (METOPROLOL TARTRATE), Dose: 5 mg IVP over 5 minute(s), Site: #1 left forearm. Medication Ordered: Metoprolol IV 5 mg (HIGH ALERT MEDICATION, NOW). Given 17:06 06/29/2016 Sabrina Guadalupe R.N. Medication Administered: TORADOL [IVP], Dose: 30 mg IVP over 2 minute(s), Site: #1 left forearm. Medication Ordered: Toradol IV 30 mg (NOW). Given 17:12 06/29/2016 Sabrina Guadalupe R.N. Medication Administered: DILAUDID [IVP] (HYDROMORPHONE HCL PF), Dose: 1 mg IVP, Site: #1 left forearm. Medication Ordered: Dilaudid IV 1 mg (HIGH ALERT MEDICATION, NOW).
--- NOTE | 2016-07-01 07:40 | ED DISCHARGE INSTRUCTIONS ---
Patient: ASHLIE MAXWELL General Instructions [facility] VisitID: [id number] [address] [place] [address] 71y, M Registration Date/Time: 06/29/2016 Acute nontraumatic thoracic and lumbar back pain. (muscle spasm). INSTRUCTIONS Apply ice for 20 minutes three times a day as needed and until better. Don't apply ice directly to skin and don't use while asleep. Warnings: SEDATIVE MEDICATION: You were given sedative medication during your visit. Do not drive or operate dangerous machinery for 8 hours. GENERAL WARNINGS: Return or contact your physician immediately if your condition worsens or changes unexpectedly, if not improving as expected, or if other problems arise. Your Current Medications: CONTINUE TAKING THE FOLLOWING MEDICATIONS: Baclofen* : 20 mg 3x a day. Colchicine Oral : 0.6 mg daily. Indomethacin Oral : 25 mg 2x a day. Metoprolol Tartrate Oral : 100 mg BID. Prescription Medications: Oxycodone/APAP 5 mg/325 mg: take 1-2 tablets orally every 4 hours as needed for pain. Dispense twenty-five (25). No refill. Follow-up: Follow up with your doctor in five days if not better. Understanding of the discharge instructions verbalized by patient. ADDITIONAL INFORMATION Back Spasm [No Trauma] Spasm of the back muscles can occur after a sudden forceful twisting or bending force (such as in a car accident), after a simple awkward movement, or after lifting something heavy with poor body positioning. In either case, muscle spasm is often present and adds to the pain.Sleeping in an awkward position or on a poor quality mattress can also cause this. Some persons respond to emotional stress by tensing the muscles of their back. The treatment described below will usually help the pain to go away in 5-7 days. Pain that continues may require further evaluation or other types of treatment such as physical therapy. Unless you had a physical injury (for example, a car accident or fall), x-rays are usually not ordered for the initial evaluation of back pain. If pain continues and does not respond to medical treatment, x-rays and other tests may be performed at a later time. Home Care: You may need to stay in bed the first few days. But, as soon as possible, begin sitting or walking to avoid problems with prolonged bed rest (muscle weakness, worsening back stiffness and pain, blood clots in the legs). When in bed, try to find a position of comfort. A firm mattress is best. Try lying flat on your back with pillows under your knees. You can also try lying on your side with your knees bent up toward your chest and a pillow between your knees. Avoid prolonged sitting. This puts more stress on the lower back than standing or walking. Some persons find relief with heat (hot shower, hot bath, or heating pad) and massage, while others prefer cold packs (crushed or cubed ice in a plastic bag, wrapped in a towel). Try both and use the method that feels best for 20 minutes several times a day. You may use acetaminophen (Tylenol) or ibuprofen (Motrin, Advil) to control pain, unless another pain medicine was prescribed. [NOTE: If you have chronic liver or kidney disease or ever had a stomach ulcer or GI bleeding, talk with your doctor before using these medicines.] Gentle stretching will help your back heal faster. Perform this simple routine 2-3 times a day until your back is feeling better. LOW BACK STRETCH Lie on your back with your knees bent and both feet on the ground. Slowly raise your left knee to your chest as you flatten your lower back against the floor. Hold for 5 seconds. Relax and repeat the exercise with your right knee. Do 10 of these exercises for each leg. Repeat, hugging both knees to your chest at the same time. Be aware of safe lifting methods and do not lift anything over 15 pounds until all the pain is gone. Follow Up with your doctor or this facility if your symptoms do not start to improve after one week. Physical therapy or further tests may be needed. [NOTE: If x-rays were taken, they will be reviewed by a radiologist. You will be notified of any new findings that may affect your care.] Return Promptly or contact your doctor if any of the following occurs: Pain becomes worse or spreads to your legs Weakness or numbness in one or both legs Loss of bowel or bladder control Numbness in the groin or genital area Unexplained fever over 100.4F (38.0C) Burning or pain when passing urine You have been given the following additional information: Back Spasm, No Trauma (Electronically signed by Rosa Maria Lazo MD 07/01/2016 7:40)
--- NOTE | 2016-07-01 07:40 | ED MED RECONCILIATION SUMMARY ---
Patient: ASHLIE MAXWELL Medication Reconciliation Report [facility] VisitID: [id number] [address] [place] [address] 71y, M Registration Date/Time: 06/29/2016 Weight: 106.5 kg Height/Length: 69 in. BMI: 34.7 ALLERGIES: No Known Drug Allergy The patient's Home Medications are listed below: CONTINUE TAKING THE FOLLOWING MEDICATIONS: Baclofen 20 mg, 3x a day Colchicine Oral 0.6 mg, daily Indomethacin Oral 25 mg, 2x a day Metoprolol Tartrate Oral 100 mg, BID The source(s) of the original Home Medication information: other The following Medications were given to the patient in the Emergency Department: IV NS IV Fluids bolus 0, then 1000 mL/hr, administered: 06/29/2016 4:51:00 PM Metoprolol [IVP] IVP 5 mg, administered: 06/29/2016 4:57:00 PM Toradol [IVP] IVP 30 mg, administered: 06/29/2016 5:06:00 PM Dilaudid [IVP] IVP 1 mg, administered: 06/29/2016 5:12:00 PM The following Medications were prescribed to the patient: Oxycodone/APAP 5 mg/325 mg: take 1-2 tablets orally every 4 hours as needed for pain. Dispense twenty-five (25). No refill. -- Rosa Maria Lazo MD
== END 2016-06-29 21:00 | disposition home or self-care (01) ==
LOC: ED SRH 16:03
DX: M62.830 Muscle spasm of back (principal); M54.5 Low back pain; M54.6 Pain in thoracic spine; I10 Essential (primary) hypertension; Z79.899 Other long term (current) drug therapy; Z87.891 Personal history of nicotine dependence
CPT/HCPCS: 90004; 90100; 93140; 95059